=== PATIENT | female | born 1970 | race Caucasian/White ===

== ENCOUNTER 2019-04-22 04:23 | Emergency (ER) | payer SELFPAY ==
--- NOTE | 2019-04-22 04:28 | ED.GENADULT ---
HPI - General Adult General Chief complaint: Upper Respiratory Infection Stated complaint: COUGH, CHILLS, NAUSEA Time Seen by Provider: 04/22/19 04:28 Source: patient Mode of arrival: ambulatory Limitations: no limitations History of Present Illness HPI narrative: Patient is a 48-year-old female with no past medical history who presents for evaluation of myalgia, fatigue, sore throat, congestion. Patient reports she has had worsening 1 day history of this. She denies current fever, but states that she took DayQuil around 3 AM. Patient reports left ear pain, sore throat and sinus congestion. She reports nausea without vomiting or abdominal pain. No current shortness of breath or chest pain. She reports cough, states is if she feels that the phlegm gets stuck in her throat. Patient denies any wheezing. No recent sick contacts. Patient is requesting a work note. Related Data Allergies Allergy/AdvReac Type Severity Reaction Status Date / Time NKDA Allergy Mild Uncoded 08/22/09 17:29 Review of Systems Review of Systems: Narrative: CONSTITUTIONAL: Reports subjective fever and chills EYES: Denies visual changes, redness, or discharge. ENT: Reports rhinorrhea, congestion, sore throat, left ear pain CARDIOVASCULAR: Denies chest pain, palpitations, or edema. RESPIRATORY: Reports cough, denies shortness of breath GASTROINTESTINAL: Denies abdominal pain, reports nausea, no vomiting GENITOURINARY: Denies dysuria or hematuria. SKIN: Denies rash or itching. MUSCULOSKELETAL: Denies back pain, joint pain, reports myalgias NEUROLOGIC: Denies headache, numbness, or weakness. [facility] Social History Social History (Updated 04/22/19 @ 04:39 by China Madera MD) Smoking status: Never smoker Alcohol intake: never Substance use: never Occupation/Education: occupation Additional occupation/education comments: [employer] Exam Narrative: Exam Narrative: GENERAL: Well-appearing, well-nourished, and in no acute distress. HEAD: Normocephalic, atraumatic. EYES: PERRLA and EOMI. ENT: Nares clear, no rhinorrhea or epistaxis. Mucous membranes moist. Right tympanic membrane unremarkable, good light reflex, no bulging or effusion. Left TM cerumen occluding the view of the tympanic membrane. NECK: Supple. CHEST: Clear to auscultation. No respiratory distress. HEART: Regular rate and rhythm. No murmur heard. Normal peripheral pulses. ABDOMEN: Soft, nontender, nondistended, normal active bowel sounds. EXTREMITIES: Normal range of motion. No edema. SKIN: Warm, dry, no rash. NEURO: No focal deficits. Alert and oriented x3 Course Vital Signs Vital signs: Vital Signs Temperature 36.6 C 04/22/19 04:34 Pulse Rate 87 04/22/19 04:34 Respiratory Rate 18 04/22/19 04:34 Blood Pressure 126/66 04/22/19 04:34 Pulse Oximetry 98 04/22/19 04:34 Temperature 36.6 C 04/22/19 04:34 Pulse Rate 87 04/22/19 04:34 Respiratory Rate 18 04/22/19 04:34 Blood Pressure 126/66 04/22/19 04:34 Pulse Oximetry 98 04/22/19 04:34 Medical Decision Making MDM Narrative Medical decision making narrative: We are able to washout the patient's left ear to find that she had a left serous otitis media with dulled light reflex, erythema. Given patient is symptomatic with pain, we will treat this. Otherwise, patient influenza and strep swabs are negative. Patient is otherwise hemodynamically stable, no other concerning complaints. She was discharged home with antibiotic in stable condition advised follow-up with her primary care provider. Vital Signs Vital Signs: Vital Signs Temperature 36.6 C 04/22/19 04:34 Pulse Rate 87 04/22/19 04:34 Respiratory Rate 18 04/22/19 04:34 Blood Pressure 126/66 04/22/19 04:34 Pulse Oximetry 98 04/22/19 04:34 Temperature 36.6 C 04/22/19 04:34 Pulse Rate 87 04/22/19 04:34 Respiratory Rate 18 04/22/19 04:34 Blood Pressure 126/66 04/22/19 04:34 Pulse Oximetry 98 03
[2019-04-22 04:34] VITALS: BP 126/66; PULSE 87; RESP 18; TEMP 36.6; O2SAT 98
[2019-04-22] MEDS: DEXAMETHASONE SOD PHOS INJ 4 MG/ML VIAL 10 MG BY MOUTH (04:51)
[2019-04-22] MEDS: HYDROGEN PEROXIDE 3% SOLN(*SP) 473 ML BOTTLE (05:23)
== END 2019-04-22 05:25 | disposition home or self-care (01) ==
PROVIDERS: Emergency Provider Emergency Medicine
DX: B34.9 Viral infection, unspecified (principal); H65.92 Unspecified nonsuppurative otitis media, left ear
CPT/HCPCS: 87081; 87804; 87880; 99283; A9270; J1100

== ENCOUNTER 2021-08-17 08:52 | Emergency (ER) | payer SELFPAY ==
--- NOTE | ~2021-08-17 | CT_ITS ---
EXAMINATION: CT abdomen pelvis w con DATE: 08/17/2021 12:02 INDICATION: Mid abdominal lesion with 1 and erythema. TECHNIQUE: Computed tomography (CT) of the abdomen and pelvis was performed with 100 mL Omnipaque-300 intravenous contrast. Automated exposure control and iterative reconstruction technique were employe d. The dose-length product was 761.50 mGy-cm. COMPARISON: None FINDINGS: Mild dependent atelectasis in the bilateral lower lobes. Heart size is normal. No pericardial or pleu ral effusion. Post cystectomy clips the gallbladder fossa. Liver, spleen, pancreas, bilateral kidneys and right adrenal gland are normal. Subcentimeter left adrenal nodule statistically most likely repr esent an adenoma. Bowels including the appendix are normal. Bladder, anteverted uterus and bilateral adnexa are unremarkable. No free intraperitoneal gas or fluid. No pathologically enlarged abdominal o r pelvic lymphadenopathy. There is focal region of mild skin thickening with negligible underlying st randing in the subcutaneous fat overlying the anterior left lower abdomen consistent with dermatitis and minimal cellulitis. No abscess or soft tissue gas. Tiny bone islands at the right femoral head an d right pubic body. No suspicious lytic or blastic bone lesions. IMPRESSION: 1. Region of dermatitis/minimal cellulitis along the anterior left lower abdomen. No abscess or acute intra-abdominal/pelvic process. Reviewed, dictated and finalized at location A. IMPRESSION: 1. Region of dermatitis/minimal cellulitis along the anterior left lower abdome n. No abscess or acute intra-abdominal/pelvic process.
[2021-08-17 09:04] VITALS: BP 131/73; PULSE 102; RESP 14; TEMP 36.1; O2SAT 98
--- NOTE | 2021-08-17 09:32 | ED.GENADULT ---
HPI - General Adult General Chief complaint: Skin/Abscess/Foreign Body <Vicky Locke PA-C - Last Filed: 08/17/21 18:56> Stated complaint: rash <RACQUEL Villanueva Last Filed: 08/17/21 18:56> Time Seen by Provider: 08/17/21 09:19 <RACQUEL Villanueva Last Filed: 08/17/21 18:56> Source: patient <RACQUEL Villanueva Last Filed: 08/17/21 18:56> Mode of arrival: ambulatory <RACQUEL Villanueva Last Filed: 08/17/21 18:56> Limitations: no limitations <RACQUEL Villanueva Filed: 08/17/21 18:56> History of Present Illness HPI narrative: Patient is a 51 y/o female who presents to the ED with c/o lesions to her abdominal wall. Patient reports having 2 areas of redness, warmth, tenderness to her mid abdominal wall, on either side of her umbilicus. She notes her skin folds in this area and this is also where her pant waistline sits. She has had the lesions for the past couple weeks. She notes the lesions seem to alternate which is inflamed and painful. Today, she reports having increased pain, redness, tenderness to the left-sided lesion. She has not tried anything for her symptoms. She does not see a primary care doctor as she does not currently have insurance. She denies any known fever, chills, diaphoresis, nausea, vomiting, abdominal pain otherwise. <RACQUEL Villanueva Last Filed: 08/17/21 18:56> Related Data Allergies/adverse reactions: Allergies Allergy/AdvReac Type Severity Reaction Status Date / Time No Known Allergies Allergy Verified 08/17/21 09:14 <RACQUEL Villanueva Last Filed: 08/17/21 18:56> Review of Systems Review of Systems: CONSTITUTIONAL: Denies fever, chills, or sweats. CARDIOVASCULAR: Denies chest pain. RESPIRATORY: Denies dyspnea. GASTROINTESTINAL: Denies abdominal pain, nausea, vomiting, or diarrhea. SKIN: Reports mid abdominal lesions with redness, warmth, tenderness. MUSCULOSKELETAL: Denies back pain. NEUROLOGIC: Denies headache, numbness, tingling, or weakness. <Vicky Locke PA-C - Last Filed: 08/17/21 18:56> All systems reviewed & are unremarkable except as noted in HPI and below <Vicky Locke PA-C - Last Filed: 08/17/21 18:56> PMFSH Past Medical History Medical History: Medical History (Updated 08/18/21 @ 00:00 by Geovanna Puga) No pertinent past medical history <Vicky Locke PA-C - Last Filed: 08/17/21 18:56> Surgical History Surgical History: Surgical History (Updated 08/17/21 @ 09:53 by Vicky Locke PA-C) History of section <Vicky Locke PA-C - Last Filed: 08/17/21 18:56> Social History Social History: Social History (Updated 08/17/21 @ 09:53 by Vicky Locke PA-C) Smoking status: Current every day smoker Tobacco type: cigarettes Alcohol intake: never Substance use: never Additional occupation/education comments: [employer] <Vicky Locke PA-C - Last Filed: 08/17/21 18:56> Exam Narrative: GENERAL: Well appearing, well-nourished, non-toxic, in no acute distress. HEAD: Normocephalic, atraumatic. NECK: Supple. No adenopathy, no masses. RESPIRATORY: Airway patent, respirations nonlabored. Clear to auscultation bilaterally, no rales, rhonchi, wheezing. CARDIOVASCULAR: Regular rate and rhythm without murmurs, rubs, or gallops. Peripheral pulses 2+ and equal bilaterally. ABDOMINAL: Soft, no other tenderness to palpation in abdomen aside from localized lesions, nondistended, no hepatosplenomegaly. Normoactive BS. MUSCULOSKELETAL: Moves all extremities. Strength/ROM intact without gross deformities. SKIN: Warm, dry. Two areas of chronic-appearing skin inflammation/irritation/induration/redness in skin fold of mid abdomen to left/right of umbilicus. R lesion nontender. L lesion approximately 7X3 cm area of redness, induration, tenderness. Warmth noted to lesion on L mid abdomen. No drainage noted at this time. No fluctuance appreciated from either lesion.
[2021-08-17 10:05] LABS: Basophils Absolute Auto 0.1 K/mm3 (0.0-0.1); Eosinophils Absolute Auto 0.3 K/mm3 (0-0.3); Eosinophils Percent Auto 2.6 % (0-4.4); Hematocrit 42.6 % (37.0-47.0); Hemoglobin 14.2 g/dL (12.0-15.0); Immature Granulocyte Absolute 0.06 K/mm3 (0.00-0.031); Immature Granulocyte Percent A 0.5 % (0-0.5); Lymphocytes Absolute Auto 4.28 K/mm3 (0.9-3.2); Lymphocytes Percent Auto 35.3 % (18.3-44.2); Mean Corpuscular HGB Conc 33.3 g/dl (32-36); Mean Corpuscular Hemoglobin 28.9 pg (26-34); Mean Corpuscular Volume 86.8 fl (80-100); Mean Platelet Volume 9.8 fl (7.4-10.4); Monocytes Percent Auto 7.8 % (2.6-8.5); Neutrophils Absolute Auto 6.4 K/mm3 (1.3-6.7); Neutrophils Percent Auto 52.8 % (45.5-73.1); Platelet Count Result 327 k/mm3 (150-375); Red Blood Count 4.91 M/mm3 (4.2-5.4); Red Cell Distribution Width 13.3 % (11.5-14.5); White Blood Count 12.1 K/mm3 (4.5-10.0)
[2021-08-17 10:17] LABS: Alanine Aminotransferase 32 U/L (6-35); Albumin Level 4.4 g/dL (3.5-5.1); Alkaline Phosphatase 96 U/L (38-126); Anion Gap 3 mmol/L (8-16); Aspartate Amino Transferase 31 U/L (14-36); Bilirubin,Total 0.1 mg/dL (0.2-1.3); Blood Urea Nitrogen 9 mg/dL (7-17); Calcium 9.2 mg/dL (8.4-10.2); Carbon Dioxide 29 mmol/L (22-30); Chloride 106 mmol/L (98-107); Estimated CRCL calculation 96 ml/min; Estimated Glomerular Filt Rate > 60; Glucose 91 mg/dL (65-110); Potassium 3.7 mmol/L (3.4-5.0); Sodium 138 mmol/L (137-145)
[2021-08-17 11:22] VITALS: BP 131/56; PULSE 82; RESP 18; O2SAT 98
[2021-08-17 13:29] VITALS: BP 127/58; PULSE 90; RESP 18; O2SAT 97
== END 2021-08-17 13:30 | disposition home or self-care (01) ==
PROVIDERS: Physician Assistant; Emergency Provider Emergency Medicine
DX: L03.311 Cellulitis of abdominal wall (principal); L30.9 Dermatitis, unspecified; F17.210 Nicotine dependence, cigarettes, uncomplicated
CPT/HCPCS: 36415; 74177; 80053; 81025; 85025; 99284; Q9967

== ENCOUNTER 2021-10-12 10:26 | Emergency (ER) | payer SELFPAY ==
[2021-10-12 10:27] VITALS: PULSE 91; RESP 14; TEMP 36.4; O2SAT 100
--- NOTE | 2021-10-12 10:36 | ED.GENADULT ---
HPI - General Adult General Chief complaint: Dental/Oral Stated complaint: toothache lower right side Time Seen by Provider: 10/12/21 10:31 Source: RN notes reviewed History of Present Illness HPI narrative: Patient presents emergency department from home for right-sided dental pain. Patient states the dental pain began in the middle of the night last night. She states that her right lower molar is cracked and carious but she has not seen a dentist she states that she has taken both ibuprofen and Tylenol for the pain at home with no relief she denies any fevers or chills sore throat or any other symptoms Related Data Allergies Allergy/AdvReac Type Severity Reaction Status Date / Time No Known Allergies Allergy Verified 08/17/21 09:14 Review of Systems Review of Systems: Gen.: Denies fevers or chills HEENT: See HPI Neuro: Denies headache Skin: Denies rash Endo: Denies DM PMFSH Past Medical History Medical History No pertinent past medical history Surgical History Surgical History (Updated 08/17/21 @ 09:53 by Vicky Jo PA-C) History of section Social History Social History Smoking status: Current every day smoker Tobacco type: cigarettes Alcohol intake: never Substance use: never Additional occupation/education comments: [employer] Exam Narrative: APPEARANCE: No acute distress, nontoxic, resting in bed HEENT: Normocephalic, atraumatic, TMs clear bilaterally, nares patent, oral mucosa moist, airway patent, approximately tooth 29 is chipped and carious with several other missing teeth there is tenderness to palpation of this tooth mild erythema no fluctuance of the gums RESPIRATORY: No respiratory distress MUSCULOSKELETAl: Moves all extremities. NEURO: Awake and alert. Following commands, speech normal, no focal deficits SKIN:: Warm, dry. Normal Color PSYCHIATRIC: Normal affect/mood Course Course Emergency Course: Discussed with patient results of workup and diagnosis. Discussed need for follow-up with primary care, proper use of medication, and reasons to return to the emergency department. Patient understands and agrees to current treatment plan Vital Signs Vital signs: Vital Signs Temperature 97.5 F L 10/12/21 10:27 Pulse Rate 91 10/12/21 10:27 Respiratory Rate 14 10/12/21 10:27 Pulse Oximetry 100 10/12/21 10:27 Oxygen Delivery Room Air 10/12/21 10:27 Temperature 97.5 F L 10/12/21 10:27 Pulse Rate 91 10/12/21 10:27 Respiratory Rate 14 10/12/21 10:27 Pulse Oximetry 100 10/12/21 10:27 Oxygen Delivery Room Air 10/12/21 10:27 Medical Decision Making Vital Signs Vital Signs: Vital Signs Temperature 97.5 F L 10/12/21 10:27 Pulse Rate 91 10/12/21 10:27 Respiratory Rate 14 10/12/21 10:27 Pulse Oximetry 100 10/12/21 10:27 Oxygen Delivery Room Air 10/12/21 10:27 Temperature 97.5 F L 10/12/21 10:27 Pulse Rate 91 10/12/21 10:27 Respiratory Rate 14 10/12/21 10:27 Pulse Oximetry 100 10/12/21 10:27 Oxygen Delivery Room Air 10/12/21 10:27 Discharge Plan Discharge Clinical Impression: Toothache, Dental caries Patient Disposition: Home, Self-Care Condition: Stable Instructions: Antibiotic Form, Toothache (ED) Additional Instructions: Return for increasing pain fever or any other symptoms of concern Prescriptions: New ibuprofen 600 mg tablet 600 mg PO TID PRN (Reason: pain) Qty: 14 0RF penicillin V potassium 500 mg tablet 500 mg PO TID Qty: 30 0RF No Action amoxicillin 875 mg tablet 875 mg PO Q12H Qty: 20 0RF acetaminophen 500 mg capsule 500 mg PO Q6H PRN (Reason: fever or pain) Qty: 30 0RF cephalexin 500 mg capsule 500 mg PO Q6H 7 Days Qty: 28 0RF Follow-up/Referrals: [facility] [place] [Outside] - 2 Days [facility] [place]
[2021-10-12] MEDS: traMADol HCL (*CRX) 50 MG TABLET PO (10:49)
[2021-10-12] MEDS: PENICILLIN V POTASSIUM 250 MG TABLET 500 MG PO (10:50)
== END 2021-10-12 11:15 | disposition home or self-care (01) ==
LOC: ANHED 10:50
PROVIDERS: Emergency Provider Emergency Medicine
DX: K02.9 Dental caries, unspecified (principal); K08.89 Other specified disorders of teeth and supporting structures
CPT/HCPCS: 99283; A9270

== ENCOUNTER 2022-03-04 07:10 | Emergency (ER) | payer SELFPAY ==
[2022-03-04 07:12] VITALS: BP 131/58; PULSE 87; RESP 18; TEMP 36.5; O2SAT 97
--- NOTE | 2022-03-04 09:26 | ED.DENTAL ---
HPI - Dental/Oral General Chief complaint: Dental/Oral Stated complaint: tooth ache Time Seen by Provider: 03/04/22 08:55 Source: patient Mode of arrival: ambulatory Limitations: no limitations History of Present Illness HPI Narrative: Patient is a 51-year-old female who presents the ED with report of right lower dental pain. Patient reports having a cracked tooth, tooth #27. She has had previous issues with the tooth. Over the last 2 days, she has had worsening pain in this tooth. She is concerned she may have an infection. She has been taking Tylenol and ibuprofen at home with minimal relief of pain. She states she does not have medical insurance until August and has not seen a dentist yet. She denies any difficulty breathing, difficulty swallowing, fevers, nausea, vomiting, throat swelling, drooling. Teeth map: 1. cracked tooth 2. previous dental extraction Related Data Allergies Allergy/AdvReac Type Severity Reaction Status Date / Time No Known Allergies Allergy Verified 08/17/21 09:14 Review of Systems Review of Systems: CONSTITUTIONAL: Denies fever, chills, or sweats. ENT: See HPI. CARDIOVASCULAR: Denies chest pain. RESPIRATORY: Denies cough or dyspnea. GASTROINTESTINAL: Denies abdominal pain, nausea, vomiting. All systems reviewed & are unremarkable except as noted in HPI and below PMFSH Past Medical History Medical History No pertinent past medical history Surgical History Surgical History History of section Social History Social History Smoking status: Current every day smoker Tobacco type: cigarettes Alcohol intake: never Substance use: never Occupation/Education: occupation Additional occupation/education comments: [employer] Exam Narrative: GENERAL: Well appearing, obese, non-toxic, in no acute distress. HEAD: Normocephalic, atraumatic. EYES: PERRLA/EOMI, conjunctiva clear. ENT: Mucous membranes moist. Diffuse dental decay, scattered dental caries. No trismus or malocclusion. Tenderness to inner and outer gumline surrounding right lower tooth #27, tooth appears fractured. Gumline mildly erythematous, no focal abscess, swelling, or fluctuance appreciated. Maintaining secretions. NECK: Supple. No significant swelling, no adenopathy, no masses. RESPIRATORY: Airway patent, respirations nonlabored. Clear to auscultation bilaterally, no rales, rhonchi, wheezing. CARDIOVASCULAR: Regular rate and rhythm without murmurs, rubs, or gallops. Radial pulses 2+ and equal bilaterally. MUSCULOSKELETAL: Moves all extremities. Strength/ROM intact without gross deformities. SKIN: Warm, dry, normal color. No rashes. NEURO: A&O X3. Speech clear. Cranial nerves II-XII grossly intact. Steady gait. No ataxic movements. PSYCHIATRIC: Appropriate mood and affect. Normal interaction. Course Vital Signs Vital signs: Vital Signs Temperature 97.7 F 03/04/22 07:12 Pulse Rate 87 03/04/22 07:12 Respiratory Rate 18 03/04/22 07:12 Blood Pressure 131/58 L 03/04/22 07:12 Pulse Oximetry 97 03/04/22 07:12 Oxygen Delivery Room Air 03/04/22 07:12 Temperature 97.7 F 03/04/22 07:12 Pulse Rate 87 03/04/22 07:12 Respiratory Rate 18 03/04/22 07:12 Blood Pressure 131/58 L 03/04/22 07:12 Pulse Oximetry 97 03/04/22 07:12 Oxygen Delivery Room Air 03/04/22 07:12 MDM - Dental/Oral MDM Narrative Medical decision making narrative: Patient's pain is consistent with dental caries and dental fracture. There are no focal signs of space-occupying abscess. The patient is controlling secretions well without signs of airway compromise. Patient is felt reasonable for outpatient follow-up with dental evaluation. Augmentin and a few [place] sent to pharmacy. Patient given list of dentists and reasons to ret
[2022-03-04] MEDS: IBUPROFEN 600 MG TABLET PO (09:36)
[2022-03-04] MEDS: AMOXICILLIN/CLAVULANATE K 875-125 MG TAB 1 TABLET PO (09:36)
== END 2022-03-04 09:47 | disposition home or self-care (01) ==
PROVIDERS: Emergency Provider Physician Assistant
DX: S02.5XXA Fracture of tooth (traumatic), initial encounter for closed fracture (principal); K08.89 Other specified disorders of teeth and supporting structures; X58.XXXA Exposure to other specified factors, initial encounter
CPT/HCPCS: 99283; A9270

== ENCOUNTER 2022-04-26 03:42 | Emergency (ER) | payer SELFPAY ==
[2022-04-26 03:43] VITALS: BP 137/68; PULSE 90; RESP 16; TEMP 36.4; O2SAT 98
--- NOTE | 2022-04-26 05:07 | ED.GENADULT ---
HPI - General Adult General Chief complaint: Dental/Oral Stated complaint: right lower toothache Time Seen by Provider: 04/26/22 04:30 History of Present Illness HPI narrative: This is a 51-year-old female presenting ED with chief complaint of dental pain. Patient has a fractured tooth in the bottom right. It has been broken for years but has been having increased pain. She has not noticed any swelling in her mouth. No systemic signs of illness. Patient has appointment with the dentist next month. Patient has been alternating Tylenol Motrin which she says controls her pain Goals visit is to obtain pain control and antibiotics. Related Data Allergies Allergy/AdvReac Type Severity Reaction Status Date / Time No Known Allergies Allergy Verified 04/26/22 03:54 [facility] Past Medical History Medical History No pertinent past medical history Surgical History Surgical History History of section Social History Social History Smoking status: Current every day smoker Tobacco type: cigarettes Alcohol intake: never Substance use: never Occupation/Education: occupation Additional occupation/education comments: [employer] Exam Narrative: APPEARANCE: No apparent distress. Head: poor dentition, fractured right lower canine. No evidence of abscess. No swelling in the mouth. EYES: EOMI, NOSE: Atraumatic NECK: Trachea midline RESPIRATORY: No increased rate of breathing CARDIOVASCULAR: RRR, ABDOMINAL: Non-distended MUSCULOSKELETAl: No obvious deformities NEURO: Alert. Moving 4/4 extremities SKIN:: Warm, dry. Normal color PSYCHIATRIC: Normal affect Course Vital Signs Vital signs: Vital Signs Temperature 97.6 F 04/26/22 03:43 Pulse Rate 90 04/26/22 03:43 Respiratory Rate 16 04/26/22 03:43 Blood Pressure 137/68 04/26/22 03:43 Pulse Oximetry 98 04/26/22 03:43 Oxygen Delivery Room Air 04/26/22 03:43 Temperature 97.6 F 04/26/22 03:43 Pulse Rate 90 04/26/22 03:43 Respiratory Rate 16 04/26/22 03:43 Blood Pressure 137/68 04/26/22 03:43 Pulse Oximetry 98 04/26/22 03:43 Oxygen Delivery Room Air 04/26/22 03:43 Medical Decision Making MDM Narrative Medical decision making narrative: -Presentation: 51-year-old presenting with dental pain -DDX includes but is not limited to: dental abscess, dental caries, -Co-morbidities complicating care: poor dentition -Social determinants of health: patient works at [employer] with her -External Chart Review: none -Hx from independent Sources: none -Discussion of Management/Consultants: none -Independent interpretation of studies: none Dx tests considered but not ordered: none -Procedures: none -Interventions: [place] 5mg, Augmentin 875 -Shared decision making / Disposition: no evidence of abscess requiring drainage. Patient was offered a inferior alveolar dental block but declined. She was given a [place] and Augmentin. She continues take Motrin Tylenol for pain follow up with a dentist. -RX Augmentin b.i.d. times 10 days. Vital Signs Vital Signs: Vital Signs Temperature 97.6 F 04/26/22 03:43 Pulse Rate 90 04/26/22 03:43 Respiratory Rate 16 04/26/22 03:43 Blood Pressure 137/68 04/26/22 03:43 Pulse Oximetry 98 04/26/22 03:43 Oxygen Delivery Room Air 04/26/22 03:43 Temperature 97.6 F 04/26/22 03:43 Pulse Rate 90 04/26/22 03:43 Respiratory Rate 16 04/26/22 03:43 Blood Pressure 137/68 04/26/22 03:43 Pulse Oximetry 98 04/26/22 03:43 Oxygen Delivery Room Air 04/26/22 03:43 Discharge Plan Discharge Clinical Impression: Dental caries Patient Disposition: Home, Self-Care Condition: Stable Instructions: Antibiotic Form, Toothache
[2022-04-26] MEDS: AMOXICILLIN/CLAVULANATE K 875-125 MG TAB 1 TABLET PO (05:17)
[2022-04-26] MEDS: HYDROcodone/acetaminophen (*CRX) 5-325 MG TABLET 1 TAB PO (05:17)
== END 2022-04-26 05:20 | disposition home or self-care (01) ==
PROVIDERS: Emergency Provider Emergency Medicine
DX: K02.9 Dental caries, unspecified (principal)
CPT/HCPCS: 99283; A9270

== ENCOUNTER 2022-05-02 10:09 | Emergency (ER) | payer SELFPAY ==
[2022-05-02 10:38] VITALS: BP 132/70; PULSE 94; RESP 20; TEMP 36.6; O2SAT 97
--- NOTE | 2022-05-02 12:25 | ED.EYEPROB ---
HPI - Eye Problem General Chief complaint: Eye Problems Stated complaint: right eye redness and drainage Time Seen by Provider: 05/02/22 12:00 History of Present Illness HPI Narrative: Patient is a 51-year-old female who wears corrective lenses here for evaluation of right eye irritation over the past 2 days. Patient reports itchiness, redness and increased watery drainage from the eye. She denies trauma to the eye, known foreign bodies or obvious precipitants for her symptoms. Positive sick contacts, numerous people at her work have similar symptoms. Reports some blurry vision in the right eye but no double vision, nausea, vomiting. Was here 2 weeks ago for tooth ache and received antibiotics, tooth ache has improved. Related Data Allergies Allergy/AdvReac Type Severity Reaction Status Date / Time No Known Allergies Allergy Verified 05/02/22 10:09 Review of Systems Review of Systems: Gen.: Denies fevers or chills Eyes: Reports eye pain and discharge ENT: Denies congestion Respiratory: Denies shortness of breath or cough CV: Denies chest pain or palpitations GI: Denies abdominal pain nausea, emesis or diarrhea denies burning, urgency, frequency or hematuria Musculoskeletal: Denies back pain or muscle pain Neuro: Denies numbness, tingling, weakness or focal weakness Skin: Denies rash Except as documented, all other systems reviewed and negative PMFSH Past Medical History Medical History No pertinent past medical history Surgical History Surgical History History of section Social History Social History Smoking status: Current every day smoker Tobacco type: cigarettes Alcohol intake: never Substance use: never Occupation/Education: occupation Additional occupation/education comments: [employer] Exam Narrative: APPEARANCE: Well appearing, no pain in distress, well-nourished. Head: Normocephalic and atraumatic. EYES: Right eye is diffusely injected, pupils equal round and reactive to light, normal EOMs, fluorescein exam reveals a small area of uptake overlying her pupil. Tl sign is negative. NOSE: No nasal drainage EARS: External ear normal in appearance THROAT: Oropharynx is clear. Mucous membranes are moist. NECK: Supple. No adenopathy, no masses. RESPIRATORY: Airway patent, respirations nonlabored. Clear to auscultation bilaterally, no rales, rhonchi, wheezing. CARDIOVASCULAR: Regular rate and rhythm without murmurs, rubs, or gallops. ABDOMINAL: Normoactive bowel sounds. Soft, nontender, nondistended. No rebound tenderness or guarding. MUSCULOSKELETAL: Extremities are warm and well-perfused. Moves all extremities well. No edema. NEURO: Normal speech. No focal neurologic deficits. SKIN: Skin is warm and dry. No rashes. PSYCHIATRIC: Normal affect/mood.. Course Vital Signs Vital signs: Vital Signs Temperature 97.8 F 05/02/22 10:38 Pulse Rate 94 05/02/22 10:38 Respiratory Rate 20 05/02/22 10:38 Blood Pressure 132/70 05/02/22 10:38 Pulse Oximetry 97 05/02/22 10:38 Oxygen Delivery Room Air 05/02/22 10:38 Temperature 97.8 F 05/02/22 10:38 Pulse Rate 94 05/02/22 10:38 Respiratory Rate 20 05/02/22 10:38 Blood Pressure 132/70 05/02/22 10:38 Pulse Oximetry 97 05/02/22 10:38 Oxygen Delivery Room Air 05/02/22 10:38 MDM - Eye Problem MDM Narrative Medical decision making narrative: 51-year-old female here for evaluation of right eye irritation and redness x2 days in the setting of a corneal abrasion visualized on the fluorescein exam. She has normal Hira-Pen pressures. Visual acuity is 20/25 in the left and 20/200 in the right. Patient states that opening her eye is painful which makes it difficult to read the numbers. She will be treated with erythromyci
== END 2022-05-02 13:04 | disposition home or self-care (01) ==
PROVIDERS: Emergency Provider Physician Assistant
DX: S05.01XA Injury of conjunctiva and corneal abrasion without foreign body, right eye, initial encounter (principal); X58.XXXA Exposure to other specified factors, initial encounter
CPT/HCPCS: 99283

== ENCOUNTER 2022-11-18 01:24 | Emergency (ER) | payer OTHER, SELFPAY ==
--- NOTE | ~2022-11-18 | CT_ITS ---
EXAMINATION: CT lumbar spine wo con DATE: 11/18/2022 02:20 INDICATION: Midline back pain. TECHNIQUE: Computed tomography (CT) of the lumbar spine was performed without intravenous contrast. A utomated exposure control and iterative reconstruction technique were employed. The dose-length produ ct was 1063.63 mGy-cm. COMPARISON: Lumbar spine MRI 07/08/16 FINDINGS: There are changes of cholecystectomy. Aortic atherosclerosis is noted. Bone alignment is no rmal. Vertebral body heights and intervertebral disc heights are normal. The following disc levels ar e specifically discussed: L1-L2: The disc does not extend beyond the endplate margin. There is moderate right and severe left f acet joint osteoarthritis. There is no neural foraminal stenosis. There is no central canal stenosis. L2-L3: The disc does not extend beyond the endplate margin. There is severe bilateral facet joint ost eoarthritis. There is no neural foraminal stenosis. There is no central canal stenosis. L3-L4: The disc does not extend beyond the endplate margin. There is moderate bilateral facet joint o steoarthritis. There is no neural foraminal stenosis. There is no central canal stenosis. L4-L5: The disc is bulging. There is mild bilateral facet joint osteoarthritis. There is mild bilater al neural foraminal stenosis. There is mild central canal stenosis. L5-S1: The disc is bulging. There is mild bilateral facet joint osteoarthritis. There is mild left ne ural foraminal stenosis. There is mild central canal stenosis. IMPRESSION: 1. Mild lumbar spondylosis, stable from 07/08/2016. Reviewed, dictated and finalized at location A.
[2022-11-18 01:30] VITALS: BP 121/65; PULSE 103; RESP 20; TEMP 36.9; O2SAT 95
--- NOTE | 2022-11-18 01:53 | ED.DENTAL ---
HPI - Dental/Oral General Chief complaint: Dental/Oral <Nita Flores PA-C - Last Filed: 11/18/22 03:45> Stated complaint: Dental pain <Nita Flores PA-C - Last Filed: 11/18/22 03:45> Time Seen by Provider: 11/18/22 01:37 <Nita Flores PA-C - Last Filed: 11/18/22 03:45> History of Present Illness HPI Narrative: 52-year-old female reports for evaluation for right-sided facial and jaw swelling since last night. Patient states she fractured her tooth on the right lower jaw a few years ago and has not had any problems generalized pain. She does not have a dentist but reports she recently got insurance. She denies pain, fever, nausea or vomiting, difficulty breathing, cough or congestion, chest pain or shortness of breath. She is also reporting generalized low back pain x4 days. Patient states the back pain started when she was walking 4 days ago. She denies known injury or trauma. Reports the back pain is worse with movement. Denies hematuria, dysuria, urinary frequency or urgency, radiating pain down her legs, lower extremity weakness or numbness, saddle anesthesia, difficulty walking, fever, IV drug use, use of steroids or immunosuppressants, unintentional weight loss, history of cancer., abdominal pain, loss of bowel or bladder control or retention. <Nita Flores PA-C - Last Filed: 11/18/22 03:45> Related Data Allergies/adverse reactions: Allergies Allergy/AdvReac Type Severity Reaction Status Date / Time No Known Allergies Allergy Verified 11/18/22 01:36 <Nita Flores PA-C - Last Filed: 11/18/22 03:45> Review of Systems Review of Systems: CONSTITUTIONAL: Denies fever, chills EYES: Denies visual changes, redness, or discharge. ENT: See HPI CARDIOVASCULAR: Denies chest pain, palpitations, or edema. RESPIRATORY: Denies cough or dyspnea. GASTROINTESTINAL: Denies abdominal pain, nausea, vomiting, or diarrhea. GENITOURINARY: Denies dysuria or hematuria. SKIN: Denies rash or itching. MUSCULOSKELETAL: See HPI NEUROLOGIC: Denies headache, numbness, dizziness, or weakness. PSYCHIATRIC: Denies anxiety or depression. <Nita Flores PA-C - Last Filed: 11/18/22 03:45> [facility] Past Medical History Medical History: Medical History No pertinent past medical history <Nita Flores PA-C - Last Filed: 11/18/22 03:45> Surgical History Surgical History: Surgical History History of section <Nita Flores PA-C - Last Filed: 11/18/22 03:45> Social History Social History: Social History Smoking status: Current every day smoker Tobacco type: cigarettes Alcohol intake: never Substance use: never Occupation/Education: occupation Additional occupation/education comments: [employer] <Nita Flores PA-C - Last Filed: 11/18/22 03:45> Exam Narrative: GENERAL: Well-appearing, in no acute distress. Patient resting comfortably in exam bed. She is pleasant and conversational. HEAD: Normocephalic EYES: PERRLA ENT: Nares clear. Mucous membranes moist. Poor dentition. Caries throughout. Fractured first molar in the right lower jaw with small draining periapical abscess and tenderness. Right mandibular edema without areas of fluctuation or induration. Floor of mouth is soft without crepitus. No trismus. Patient tolerating secretions. No airway compromise. NECK: Supple. CHEST: No respiratory distress. Clear to auscultation, no adventitious breath sounds. HEART: Regular rate and rhythm. No murmur heard. Normal peripheral pulses. ABDOMEN: Soft, nontender, normal active bowel sounds. BACK: No midline thoracolumbar spinous tenderness, step-offs or deformities. Midline lumbar tenderness without step-offs or deformities. No overlying warmth or erythema, no ra
[2022-11-18] MEDS: IBUPROFEN 400 MG TABLET 800 MG PO (02:02)
[2022-11-18] MEDS: CYCLOBENZAPRINE HCL 10 MG TABLET PO (02:03)
[2022-11-18] MEDS: LIDOCAINE 5% PATCH 1 PATCH TRANSDERM (03:05)
[2022-11-18 03:08] VITALS: BP 102/57; PULSE 75; O2SAT 98
[2022-11-18] MEDS: AMOXICILLIN/CLAVULANATE K 875-125 MG TAB 1 TABLET PO (04:05)
[2022-11-18 04:08] VITALS: BP 105/58; PULSE 90; RESP 18; O2SAT 100
== END 2022-11-18 06:20 | disposition home or self-care (01) ==
PROVIDERS: Emergency Provider Emergency Medicine
DX: K04.7 Periapical abscess without sinus (principal); S02.5XXA Fracture of tooth (traumatic), initial encounter for closed fracture; M54.50 Low back pain, unspecified; F17.210 Nicotine dependence, cigarettes, uncomplicated; X58.XXXA Exposure to other specified factors, initial encounter
CPT/HCPCS: 72131; 99283; A9270

== ENCOUNTER 2023-02-10 07:13 | Outpatient (CLI) | payer OTHER, SELFPAY ==
--- NOTE | ~2023-02-10 | XR_ITS ---
Clinical Indication: Smoking history PA and lateral views of the chest: Comparison: None Findings: The lungs are clear, without evidence of focal consolidation or pleural effusion. Cardiome diastinal silhouette is within normal limits. Bones and soft tissues are unremarkable. Impression: Normal chest. Reviewed, dictated and finalized at location . ROAD INSPECTOR Impression: Normal chest.
== END 2023-02-10 07:14 | disposition home or self-care (01) ==
LOC: ANHIMG 07:18
PROVIDERS: PCP Emergency Medicine; Visit Provider Emergency Medicine
DX: Z12.31 Encounter for screening mammogram for malignant neoplasm of breast (principal)
CPT/HCPCS: 71046

== ENCOUNTER 2023-06-19 10:40 | Emergency (ER) | payer OTHER, SELFPAY ==
--- NOTE | ~2023-06-19 | XR_ITS ---
Clinical Indication: Chest pain PA and lateral views of the chest: Comparison: 02/10/2023 Findings: The lungs are clear, without evidence of focal consolidation or pleural effusion. Cardiome diastinal silhouette is within normal limits. Bones and soft tissues are unremarkable. Impression: Normal chest. Reviewed, dictated and finalized at location . Impression: Normal chest.
--- NOTE | 2023-06-19 10:41 | ECG_ITS ---
SEE SCANNED COPY FOR CONFIRMED REPORT MTDD
[2023-06-19 10:55] VITALS: BP 140/83; PULSE 100; RESP 16; TEMP 36.4; O2SAT 97
[2023-06-19 10:59] VITALS: O2SAT 99
[2023-06-19 11:00] VITALS: PULSE 95
[2023-06-19] MEDS: ASPIRIN 81 MG CHEWABLE TABLET 324 MG PO (11:02)
[2023-06-19 11:04] LABS: Basophils Absolute Auto 0.1 K/mm3 (0.0-0.1); Basophils Percent Auto 0.9 % (0.2-1.2); Eosinophils Absolute Auto 0.4 K/mm3 (0-0.3); Eosinophils Percent Auto 3.3 % (0-4.4); Hematocrit 41.8 % (37.0-47.0); Immature Granulocyte Absolute 0.06 K/mm3 (0.00-0.031); Immature Granulocyte Percent A 0.5 % (0-0.5); Lymphocytes Absolute Auto 3.21 K/mm3 (0.9-3.2); Lymphocytes Percent Auto 28.6 % (18.3-44.2); Mean Corpuscular HGB Conc 33.5 g/dl (32-36); Mean Corpuscular Hemoglobin 29.2 pg (26-34); Mean Corpuscular Volume 87.1 fl (80-100); Monocytes Absolute Auto 0.6 K/mm3 (0.1-0.6); Monocytes Percent Auto 5.2 % (2.6-8.5); Neutrophils Absolute Auto 6.9 K/mm3 (1.3-6.7); Neutrophils Percent Auto 61.5 % (45.5-73.1); Platelet Count Result 314 k/mm3 (150-375); Red Cell Distribution Width 13.1 % (11.5-14.5); White Blood Count 11.2 K/mm3 (4.5-10.0)
--- NOTE | 2023-06-19 11:10 | ED.CHESTPAIN ---
HPI - Chest Pain General Chief Complaint: Chest Pain Stated Complaint: Chest pain Time Seen by Provider: 06/19/23 10:47 Source: patient Mode of arrival: ambulatory Limitations: no limitations History of Present Illness HPI narrative: Patient is a 53 y/o female who presents to the ED with c/o CP. Patient reports he was at work this morning around 7:00 a.m. when she developed intermittent sharp shooting pains throughout her midsternal chest, extending into her left-sided chest and up to her left shoulder. States pain was very brief, lasted a second or two, worse with inspiration. Denies aggravation with exertion. Denies any current pain. She did feel mildly short of breath and lightheaded associated with chest pain. Denies any recent cough or cold symptoms. Denies fevers. Denies lower extremity pain or swelling. No history of blood clots. No recent long-distance travel. She is a smoker. Denies history of hypertension, hyperlipidemia, diabetes. Reports family history of heart disease in her mother, unknown age. Related Data Allergies Allergy/AdvReac Type Severity Reaction Status Date / Time No Known Allergies Allergy Verified 06/19/23 10:55 Review of Systems Review of Systems: CONSTITUTIONAL: Denies fever, chills, or sweats. CARDIOVASCULAR: See HPI. RESPIRATORY: See HPI. GASTROINTESTINAL: Denies abdominal pain, nausea, vomiting. MUSCULOSKELETAL: See HPI. NEUROLOGIC: Denies headache, dizziness, numbness, or weakness. All systems reviewed & are unremarkable except as noted in HPI and below PMFSH Past Medical History Medical History No pertinent past medical history Surgical History Surgical History History of section Social History Social History Smoking status: Current every day smoker Tobacco type: cigarettes Alcohol intake: never Substance use: never Occupation/Education: occupation Additional occupation/education comments: [employer] Exam Narrative: GENERAL: Well appearing, obese with BMI of 36.2, non-toxic, in no acute distress. HEAD: Normocephalic, atraumatic. RESPIRATORY: Airway patent, respirations nonlabored. Clear to auscultation bilaterally, no rales, rhonchi, wheezing. No focal lung sounds. No splinting. CARDIOVASCULAR: Regular rate and rhythm without murmurs, rubs, or gallops. Peripheral pulses intact. ABDOMINAL: Soft, no tenderness throughout abdomen or epigastric region, nondistended. Normoactive BS. MUSCULOSKELETAL: Moves all extremities. No gross deformities. Mild chest wall tenderness throughout left upper anterior chest. No midsternal chest wall tenderness. No calf tenderness or lower extremity edema. SKIN: Warm, dry, normal color. NEURO: A&O X3. Speech clear. PSYCHIATRIC: Appropriate mood and affect. Normal interaction. Course Vital Signs Vital signs: Vital Signs Temperature 97.5 F L 06/19/23 10:55 Pulse Rate 100 06/19/23 10:55 Respiratory Rate 16 06/19/23 10:55 Blood Pressure 140/83 06/19/23 10:55 Pulse Oximetry 97 06/19/23 10:55 Oxygen Delivery Room Air 06/19/23 10:55 Temperature 97.7 F 06/19/23 14:59 Pulse Rate 82 06/19/23 14:59 Respiratory Rate 17 06/19/23 14:59 Blood Pressure 133/70 06/19/23 14:59 Pulse Oximetry 97 06/19/23 14:59 Oxygen Delivery Room Air 06/19/23 10:59 MDM - Chest Pain MDM Narrative Medical decision making narrative: HEART score =3 based on age, RFs (BMI, smoking, +FHx). EKG with incomplete right bundle-branch block, no acute ST changes. Baseline troponin is negative. BNP within normal limits. D-dimer within normal limits. No evidence of DVT on exam. Patient otherwise low risk Wells score, no risk factors for VTE. Chest x-ray is clear. Remainder of basic laboratory studies are unremark
[2023-06-19 11:14] LABS: Alanine Aminotransferase 27 U/L (6-35); Albumin Level 4.7 g/dL (3.5-5.1); Alkaline Phosphatase 100 U/L (38-126); Anion Gap 11 mmol/L (4-12); Aspartate Amino Transferase 30 U/L (14-36); Bilirubin,Total 0.5 mg/dL (0.2-1.3); Blood Urea Nitrogen 11 mg/dL (7-17); Calcium 10.1 mg/dL (8.4-10.2); Carbon Dioxide 25 mmol/L (22-30); Chloride 105 mmol/L (98-107); Estimated CRCL calculation 98 ml/min; Estimated Glomerular Filt Rate > 60; Glucose 98 mg/dL (65-110); Lipase 775 U/L (23-300); Potassium 3.8 mmol/L (3.4-5.0); Sodium 141 mmol/L (137-145)
[2023-06-19 11:15] LABS: INR 0.9; Prothrombin Time 12.9 Seconds (11.1-14.7)
[2023-06-19 11:17] LABS: Partial Thromboplastin Time 32.5 Seconds (22.3-36.8)
[2023-06-19 11:26] LABS: Troponin I < 0.012 ng/mL (0.000-0.034)
[2023-06-19 12:04] LABS: D Dimer < 0.27 ug/mL (<0.48)
[2023-06-19 12:08] LABS: NT Pro B Type Natriuretic Pept 35 pg/mL (19.9-100)
--- NOTE | 2023-06-19 12:37 | ECG_ITS ---
SEE SCANNED COPY FOR CONFIRMED REPORT MTDD
--- NOTE | 2023-06-19 13:38 | ECG_ITS ---
SEE SCANNED COPY FOR CONFIRMED REPORT MTDD
[2023-06-19 13:47] VITALS: BP 112/62; PULSE 81; RESP 16; O2SAT 99
[2023-06-19 14:38] LABS: Troponin I < 0.012 ng/mL (0.000-0.034)
[2023-06-19 14:59] VITALS: BP 133/70; PULSE 82; RESP 17; TEMP 36.5; O2SAT 97
== END 2023-06-19 15:01 | disposition home or self-care (01) ==
PROVIDERS: Preventive Medicine Aerospace Medicine; Emergency Provider Physician Assistant
DX: R07.89 Other chest pain (principal); R74.8 Abnormal levels of other serum enzymes; F17.210 Nicotine dependence, cigarettes, uncomplicated; R94.31 Abnormal electrocardiogram [ECG] [EKG]; I45.10 Unspecified right bundle-branch block
CPT/HCPCS: 36415; 71046; 80053; 83690; 83880; 84484; 85025; 85380; 85610; 85730; 93005; 99284; A9270

== ENCOUNTER 2024-05-05 08:44 | Observation (INO) | payer OTHER, SELFPAY ==
[2024-05-05] VITALS (10 sets, daily range): BP systolic 113–154; BP diastolic 47–114; PULSE 87–108; RESP 16–20; TEMP 36.2–36.7; O2SAT 95–97; BMI 37.4
--- NOTE | ~2024-05-05 | CT_ITS ---
EXAMINATION: CTA BRAIN/CAROTID DATE: 05/05/2024 10:13 INDICATION: Stroke with left arm and facial tingling TECHNIQUE: Computed tomographic angiography (CTA) of the head and neck was performed with 100 mL Omni paque-350 intravenous contrast. Multiplanar reconstructions and maximum intensity projection 3D-recon structions of the carotid arteries and of the intracranial arteries were created by the technologist on a separate workstation. Automated exposure control and iterative reconstruction technique were emp loyed.The dose-length product was 911.39 mGy-cm. COMPARISON: None. FINDINGS: Carotid arteries: Aortic arch and great vessels arising from the arch and the extracranial bilateral vertebral arteries are all normal in caliber with no stenosis or dissection. There is a small amount of atherosclerotic plaque with 0% stenosis of the right and left carotid bulbs relative to normal distal artery lumen d iameter (NASCET criteria). Mild emphysema in the visualized upper lungs. Cervical soft tissues are un remarkable. Moderate lower cervical spondylosis. Intracranial arteries There is no hemodynamically significant stenosis in the vertebral, basilar and internal carotid arter ies. Vertebral arteries are codominant. There are no aneurysms identified. The right A1 and bilateral P1 segments are patent. The left anterior cerebral artery supplied via right A1 segment and a patent anterior communicating artery. Cerebral arterial arborization appears symmetric. IMPRESSION: 1. Small mild atherosclerotic plaque with 0% stenosis of the right and left carotid bulbs relative to normal distal artery lumen diameter (NASCET criteria). 2. Normal anatomic variant supply of the left anterior cerebral artery by the right internal carotid artery and a patent anterior communicating artery. Otherwise unremarkable cerebral CT angiogram with no hematoma significant stenosis, aneurysm or thrombosis. Reviewed, dictated and finalized at location B. IMPRESSION: 1. Small mild atherosclerotic plaque with 0% stenosis of the right and left car otid bulbs relative to normal distal artery lumen diameter (NASCET criteria). 2. Normal anatomic variant supply of the left anterior cerebral artery by the r ight internal carotid artery and a patent anterior communicating artery. Otherw ise unremarkable cerebral CT angiogram with no hematoma significant stenosis, a neurysm or thrombosis.
--- NOTE | ~2024-05-05 | CT_ITS ---
EXAMINATION: CT brain wo con DATE: 05/05/2024 09:36 INDICATION: Left arm and face tingling TECHNIQUE: Computed tomography (CT) of the head was performed without intravenous contrast. Sagittal and coronal reconstructions were performed. The mA was adjusted according to patient size. Iterative reconstruction technique was employed. The dose-length product was 605.33 mGy-cm. COMPARISON: head CT dated 08/22/09 FINDINGS: No acute intracranial hemorrhage, acute infarction or abnormal extra axial fluid collection. Mild inc reased prominence of the subarachnoid spaces overlying the convexities consistent with minimal diffus e age appropriate volume loss. Ventricles are normal and symmetric. No mass/mass effect. The orbits, paranasal sinuses and mastoid air cells are normal. IMPRESSION: 1. Normal for age head CT. Reviewed, dictated and finalized at location B. IMPRESSION: 1. Normal for age head CT.
--- NOTE | ~2024-05-05 | XR_ITS ---
EXAMINATION: XR chest 1V portable DATE: 05/05/2024 09:40 INDICATION: Chest pain and left arm tingling TECHNIQUE: PA view of the chest was obtained. COMPARISON: Chest radiograph dated 06/19/2023 FINDINGS: The lungs remain clear with no focal airspace opacities, pulmonary edema, pleural effusion or pneumot horax. The cardiomediastinal silhouette is normal. Mild thoracic dextrocurvature with mild spondylosi s. Cholecystectomy clips in right upper quadrant. IMPRESSION: 1. No acute cardiopulmonary disease. Reviewed, dictated and finalized at location B.
--- NOTE | ~2024-05-05 | MR_ITS ---
EXAMINATION: MR brain/brain stem wo/w con DATE: 05/06/2024 12:42 INDICATION: Cerebrovascular accident. Paresthesias of the left arm and face. TECHNIQUE: Magnetic resonance imaging (MRI) of the brain and brainstem was performed without and with 20 mL ProHance intravenous contrast. COMPARISON: Head CT 05/05/2024 FINDINGS: There are scattered areas of nonspecific increased T2-weighted signal intensity in the cere bral white matter, which is within normal limits for the patient's age. There is no intracranial hemo rrhage, acute infarction, or abnormal intracranial mass lesion. The ventricles are normal in size. Th ere is a small left mastoid effusion. There are effusions of the petrous apices bilaterally. The para nasal sinuses are clear. The orbits are normal. IMPRESSION: 1. Normal aging brain. Reviewed, dictated and finalized at location A. IMPRESSION: 1. Normal aging brain.
[2024-05-05 09:00] LABS: Glucose Point of Care 105 mg/dl (65-105)
--- OUTSIDE RECORDS SUMMARY | 2024-05-05 09:07 | XMS_ITS | Encounter Summary ---
Author Organization [facility] Address [facility] [place] [address] Care Team Providers Care Artist'S Model Name Role Phone Lisa Ball MD Primary Care Provider + Encounter Details Date Type Department Care Team (Late Contact Info) Description 05/03/2024 Orders Only [facility] Family Medicine [facility] [address] [address] Lisa Ball MD [address] [place] [address] Social History Tobacco Use Types Packs/Day Years Used Date Smoking Tobacco: Some Days Cigarettes Smokeless Tobacco: Never Comments:Smokes one cigarett e every few weeks. Still vapes. Alcohol Use Standard Drinks/Week Comments No 0 (1 standard drink = 0.6 oz pur e alcohol) sober 16 years Comments No Sex and Gender Information Value Date Recorded Sex Assigned at Female 05/02/2024 4:05 PM CDT Legal Sex Female 7:34 PM CDT Gender Identity Female 05/02/2024 4:05 PM CDT Sexual Orientation Not on file Occupation Industry Job Start Date Job End Date [employer] [facility] Not on file Not o n file Not on file documented as of this encounter Plan of Treatment Upcoming Encounters Date Type Department Care Team (Late Contact Info) Description 05/20/2024 9:10 AM CDT Office Visit [facility] Family [facility] [address] [address] Lisa Ball MD [address] [facility] [place] [phone] 06/02/2024 4:[address] [facility] Mammography [address] [place] [address] Lisa Ball MD [address] [place] [address] 05/08/2025 2:40 PM CDT Office Visit [facility] Family [facility] - [place] [address] [place] [address] Lisa Ball MD [address] [place] [address] documented as of this encounter Procedures Procedure Name Priority Date/Time Associated Diagnosis Comments THYROXINE, FREE (FT4) 05/03/2024 3:45 PM CDT THYROID STIM HORMONE TSH 05/03/2024 3:45 PM CDT documented in this encounter Results * THYROID STIM HORMONE TSH (05/03/2024 3:45 PM CDT) TSH 1.640 0.450 - 4.50 uIU/mL [facility] 1 05/03/2024 3:45 PM CDT 05/03/2024 Narrative [facility] - 05/04/2024 11:07 AM CDT Performed at: 01 - [facility], [place], [place] [id number] Tree Cutter: Jordan Fitzgerald PhD, Phone: [phone] us Lisa Ball MD LABORATORY Final Re sult [facility] [address] [place] [address] [facility] 1 * THYROXINE, FREE (FT4) (05/03/2024 3:45 PM CDT) FREE T4 1.14 0.82 - 1.77 ng/dL [facility] 1 05/03/2024 3:45 PM CDT 05/03/2024 Narrative [facility] - 05/04/2024 11:07 AM CDT Performed at: 01 - [facility] [address] [id number] Tree Cutter: Jordan Fitzgerald PhD, Phone: [phone] us Lisa Ball MD LABORATORY Final Re sult [facility] [address] [place] [address] [facility] 1 documented in this encounter Visit Diagnoses Not on filedocumented in this encounter Care Teams Artist'S Model Relationship Specialty Start Date End Date Lisa Ball MD [address] [place] [address] PCP - General FAMILY PRACTICE 05/03/24 documented as of this encounter
--- OUTSIDE RECORDS SUMMARY | 2024-05-05 09:07 | XMS_ITS | CONTINUITY OF CARE DOCUMENT ---
Author Name oxana daigle Address Unknown Organization [facility] Address [address] [place] [address] [address] [place] [address] Phone [phone] Care Team Providers Care Inspector Exhaust Emissions Name Role Phone Amanda Godfrey MD Unavailable JAIMEE BELL MD Unavailable [phone] JAIMEE BELL MD Unavailable [phone] INSURANCE PROVIDERS Payer name Policy type / Coverage type Dearing red green party ID [id number]
--- OUTSIDE RECORDS SUMMARY | 2024-05-05 09:08 | XMS_ITS | Clinical Summary ---
Author Organization [facility] Address [facility] [place] [address] Care Team Providers Care Ranch Manager Name Role Phone Lisa Ball MD Primary Care Provider + Allergies No known active allergies Medications CHROMIUM OR Take 2 tablets by mouth daily. Active ciclopirox (LOPROX) 0.77 % creamIndication s:Onychomycosis Apply topically 2 (two) times daily. Apply to affected nails 30 g 3 Active Active Problems Problem Noted Date Diagnosed Date Morbid obesity 05/03/2024 Assessment & Plan (05/03/2024 3:19 PM CDT): Encouraged lifestyle changes. Onychomycosis 05/03/2024 Chronic bilateral low back pain without sciatica 07/29/2016 Encounters Date Type Department Care Team Description 05/03/2024 2:00 PM CDT Office Visit [address] [place] [phone] Lisa Ball MD Establish Care 05/03/2024 Orders Only [facility] [address] [facility] [address] [place] [address] Lisa Ball MD 05/03/2024 Travel from Last 3 Months Immunizations Name Administration Dates Next Due Hepatitis A (Havrix [address]) 11/25/2001 Shingrix 05/03/2024 Tdap (Adacel) 05/03/2024 Family History Medical History Relation Comments No Known Problems Brother No Known Problems Daughter Diabetes Father Arthritis Mother Diabetes Mother Heart Attack Mother Heart Disease Mother Macular Degeneration Mother Retinal Detachment Sister 1 No Known Problems Sister 2 No Known Problems Sister 3 No Known Problems Sister 4 Diabetes type I Son 1 No Known Problems Son 2 Relation Status Comments Brother Alive Daughter Alive Father Mother Sister 1 Alive Sister 2 Alive Sister 3 Alive Sister 4 Alive Son 1 Alive Son 2 Alive Social History Tobacco Use Types Packs/Day Years Used Date Smoking Tobacco: Some Days Cigarettes Smokeless Tobacco: Never Tobacco Cessation:Ready to Q uit: Yes; Counseling Given: Yes Comments:Smokes one cigarette every few weeks. Still vapes. Alcohol Use [...] Industry Job Start Date Job End Date [employer] Not on file Not o n file Not on file Last Filed Vital Signs Vital Sign Reading Time Taken Comments Blood Pressure 136/86 05/03/2024 2:10 PM CDT Pulse 91 05/03/2024 2:10 PM CDT Temperature 36.8 C (98.3 F) 05/03/2024 2:10 PM CDT Respiratory Rate 16 09/23/2018 11:58 AM CDT Oxygen Saturation 96% 05/03/2024 2:10 PM CDT Inhaled Oxygen Concentration - - Weight 94.2 kg (207 lb 9.6 oz) 05/03/2024 2:10 P M CDT Height 160 cm (5' 3 ) 05/03/2024 2:10 PM CDT Body Mass Index 36.77 05/03/2024 2:10 PM CDT Plan of Treatment Upcoming Encounters Date Type Department Care Team (Late st Contact Info) Description 05/20/2024 9:10 AM CDT Office Visit [facility] Family [facility] [address] [facility] [address] [place] [address] Lisa Ball MD [address] [place] [address] 06/02/2024 4:40 PM CDT Appointment [facility] Mammography [address] [place] [address] Lisa Ball MD [address] [place] [phone] 05/08/2025 2:40 PM CDT Office Visit [facility] Family Medicine - [place] [address] [place] [phone] Lisa Ball MD [address] [place] [phone] Health Maintenance Due Date Last Done Comments Cervical Cancer Screening Pa p Smear (Age 30 to 64) Every 3 Years 1972 Colorectal Cancer Screening Colonoscopy (10 Years) 1972 Pneumococcal Vaccine: Pediat rics (0 to 5 Years) and At-Risk Patients (6 to 64 Years) (1 of 2 - PCV) 1978 Hepatitis C 1990 Hepatitis B Vaccines (1 of 3 - 19+ 3-dose series) 06/13/1991 Cervical Cancer Screening Pa p with HPV Testing (Age 30 to 64) Every 5 Years 2002 Cervical Cancer Screening with HPV 2002 Mammogram Screening 2012 COVID-19 Vaccine ( - 2023-2 5 season) 2023 Influenza Adult (#1) 2023 PHQ-2 (Physician [place]) 02/10/2024 Zoster Vaccines (2 of 2) 06/28/2024 05/03/2024 Annual Physical 05/03/2025 05/03/2024 DTaP, Tdap and Td Vaccines ( 2 - Td or Tdap) 05/03/2034 05/03/2024 Meningococcal B Vaccine Aged Out No l onger eligible based on patient's age to complete this topic Meningococcal Vaccine Aged Out No yeison michelle eligible based on patient's age to complete this topic RSV Immunizations Under 20 Months Aged Out No longer eligible based on patient's age to complete this topic Procedures Procedure Name Priority Date/Time Associated Diagnosis Comments THYROID STIM HORMONE TSH 05/03/2024 3:45 PM CDT THYROXINE, FREE (FT4) 05/03/2024 3:45 PM CDT from Last 3 Months Results * THYROXINE, FREE (FT4) (05/03/2024 3:45 PM CDT) FREE T4 1.14 0.82 - 1.77 ng/dL [facility] 1 05/03/2024 3:45 PM CDT 05/03/2024 Narrative [facility] - 05/04/2024 11:07 AM CDT Performed at: [facility] [id number] News Production Supervisor: Jordan Fitzgerald PhD, Phone: [phone] us Lisa Ball MD LABORATORY Final Re sult Performing Organization Address [facility] Co de Phone Number [facility] [address] [place] [address] [facility] 1 * THYROID STIM HORMONE TSH (05/03/2024 3:45 PM CDT) TSH 1.640 0.450 - 4.50 uIU/mL [facility] 1 05/03/2024 3:45 PM CDT 05/03/2024 Narrative [facility] - 05/04/2024 11:07 AM CDT Performed at: [address] [id number] News Production Supervisor: Jordan Fitzgerald PhD, Phone: [phone] us Lisa Ball MD LABORATORY Final Re sult Performing Organization Address [facility] Co de Phone Number [facility] [address] [phone] [facility] 1 from Last [address] [facility] Care Teams Ranch Manager Relationship Specialty Start Date End Date Lisa Ball MD [address] [facility] [address] [place] [phone] PCP - General FAMILY PRACTICE 05/03/24
--- OUTSIDE RECORDS SUMMARY | 2024-05-05 09:08 | XMS_ITS | Referral Summary ---
Author Organization [facility] Address [address] [place] [address] Care Team Providers Care Production Machine Operator Name Role Phone Carlos Yee MD Primary Care Provider Allergies Active Allergy Reactions Criticality Noted Date Comments Acetaminophen-Codeine Chest tightness Medium 3 Medications cyclobenzaprine (FLEXERIL) 10 mg tablet 10 MG ORALLY THREE TIMES A DAY NEEDED FOR MUSCLE SPASM 11/18/2022 Active PARoxetine (PAXIL) 10 mg tablet Take 1 tablet (10 mg total) by mouth every morning 11/27/2022 Active amoxicillin-cla vulanate (AUGMENTIN) 875-125 mg per tablet Take 1 tablet by mouth every 12 (twelve) hours 11/18/[address] (VOLTAREN) 75 mg EC tabletIndicatio ns:Lumbar pain Take 1 tablet (75 mg total) by mouth 2 (two) times a day 60 tablet 01/12/2023 Active Active Problems No known active problems Social History Tobacco Use Types Packs/Day Years Used Date Smoking Tobacco: Every Day Cigarettes Smokeless Tobacco: Never Tobacco Cessation:Ready to Q uit: Not Asked; Counseling Given: Not Answered AUDIT-C Answer Date Recorded Q1: How often do you have a drink containing alc ohol? 2-4 times a month 01/12/2023 Q2: How many drinks containi ng alcohol do you have on a typical day when you are drinking? 1 or 2 01/12/2023 Q3: How often do you have si x or more drinks on one occasion? 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 Not on file Not on file Last Filed Vital Signs Vital Sign Reading Time Taken Comments Blood Pressure - - Pulse - - Temperature - - Respiratory Rate - - Oxygen Saturation - - Inhaled Oxygen Concentration - - Weight 86.2 kg (190 lb) 01/12/2023 1:16 PM PARKING STATION ATTENDANT Height 157.5 cm (5' 2 ) 01/12/2023 1:16 PM PARKING STATION ATTENDANT Body Mass Index 34.75 01/12/2023 1:16 PM PARKING STATION ATTENDANT Plan of Treatment Not on file Insurance [facility] CHOICE PLUS Member Subscriber Plan / Payer (Ef fective 2022-Present) Name:Radha Chow Relation to Subscriber:Spouse Name:NICHOLAS CHOW Date of :1977 Address: [address] [place] [address] Payer ID:[id number] (NAIC) Type:[facility] HMO/PPO Address: [facility] [address] [place] [address] Care Teams Production Machine Operator Relationship Specialty Start Date End Date Carlos Yee MD PCP - General Emergency Medicine 12/11/22
--- NOTE | 2024-05-05 09:27 | ECG_ITS ---
Test Date: 2024-05-05 09:46:35 Measurements Intervals [place] Rate: 90 P: 31 GA: 130 QRS: -2 QRSD: 106 T: 7 QT: 337 QTc: 414 Interpretive Statements SINUS RHYTHM LOW QRS VOLTAGE IN PRECORDIAL LEADS [QRS DEFLECTION < 1.0 mV IN CHEST LEADS] No previous ECG available for comparison Electronically Signed On 05-05-2024 11:48:09 CDT by Ridge Andrews M.D.
[2024-05-05 09:49] LABS: Basophils Absolute Auto 0.1 K/mm3 (0.0-0.1); Eosinophils Absolute Auto 0.2 K/mm3 (0-0.3); Eosinophils Percent Auto 1.9 % (0-4.4); Hematocrit 41.5 % (37.0-47.0); Hemoglobin 13.9 g/dL (12.0-15.0); Immature Granulocyte Absolute 0.04 K/mm3 (0.00-0.031); Immature Granulocyte Percent A 0.4 % (0-0.5); Lymphocytes Absolute Auto 1.91 K/mm3 (0.9-3.2); Lymphocytes Percent Auto 20.2 % (18.3-44.2); Mean Corpuscular HGB Conc 33.5 g/dl (32-36); Mean Corpuscular Hemoglobin 28.9 pg (26-34); Mean Corpuscular Volume 86.3 fl (80-100); Mean Platelet Volume 10.6 fl (7.4-10.4); Monocytes Absolute Auto 0.9 K/mm3 (0.1-0.6); Monocytes Percent Auto 9.7 % (2.6-8.5); Neutrophils Absolute Auto 6.3 K/mm3 (1.3-6.7); Neutrophils Percent Auto 66.8 % (45.5-73.1); Platelet Count Result 316 k/mm3 (150-375); Red Blood Count 4.81 M/mm3 (4.2-5.4); Red Cell Distribution Width 13.1 % (11.5-14.5); White Blood Count 9.5 K/mm3 (4.5-10.0)
[2024-05-05 09:58] LABS: Alanine Aminotransferase 45 U/L (6-35); Albumin Level 4.5 g/dL (3.5-5.1); Alkaline Phosphatase 98 U/L (38-126); Anion Gap 10 mmol/L (4-12); Aspartate Amino Transferase 37 U/L (14-36); Bilirubin,Total 0.6 mg/dL (0.2-1.3); Blood Urea Nitrogen 8 mg/dL (7-17); Calcium 9.5 mg/dL (8.4-10.2); Carbon Dioxide 29 mmol/L (22-30); Chloride 99 mmol/L (98-107); Estimated CRCL calculation 95 ml/min; Estimated Glomerular Filt Rate > 60; Glucose 97 mg/dL (65-110); Magnesium 2.1 mg/dL (1.6-2.3); Potassium 3.9 mmol/L (3.4-5.0); Sodium 138 mmol/L (137-145)
--- NOTE | 2024-05-05 10:01 | ED.NEUROSD ---
HPI - Neuro Symptoms/Deficit General Chief Complaint: Neuro Symptoms/Deficit Stated Complaint: left arm numb, facial tingling LKN 0400 Time Seen by Provider: 05/05/24 08:56 Source: patient Mode of arrival: ambulatory Limitations: no limitations History of Present Illness HPI Narrative: Patient is a 53-year-old female, with PMH of daily smoking, who presents the ED with report of paresthesias. Patient reports she woke up at 4:00 a.m. this morning and notice a tingling sensation in her left arm and left-sided face around 4:15 a.m.. States she went to work and symptoms persisted, which prompted her presentation. States facial tingling is resolved currently. Still having tingling in her left arm. She denies numbness. Denies weakness of extremities. Denies slurred speech, confusion, vision changes, difficulty ambulating. Denies history of similar symptoms. Does have history of chronic neck pain, but states pain is no worse than usual today. Has had some intermittent chest pain over the last few days. Denies significant difficulty breathing. Denies cough or cold symptoms. Related Data Allergies Allergy/AdvReac Type Severity Reaction Status Date / Time No Known Allergies Allergy Verified 06/19/23 10:55 Review of Systems Review of Systems: All systems reviewed & are unremarkable except as noted in HPI. All systems reviewed & are unremarkable except as noted in HPI and below PMFSH Past Medical History Medical History No pertinent past medical history Surgical History Surgical History History of section Social History Social History Smoking status: Current every day smoker Tobacco type: cigarettes Alcohol intake: never Substance use: never Occupation/Education: occupation Additional occupation/education comments: [employer] Ex[employer] Narrative: GENERAL: Well appearing, obese with BMI of 37.5, non-toxic, in no acute distress. HEAD: Normocephalic, atraumatic. EYES: PERRL/EOMI, conjunctivae clear bilaterally. No nystagmus. NECK: Supple. No meningeal signs. RESPIRATORY: Airway patent, respirations nonlabored. Clear to auscultation bilaterally, no rales, rhonchi, wheezing. CARDIOVASCULAR: Regular rate and rhythm without murmurs, rubs, or gallops. Peripheral pulses 2+ and equal bilaterally. MUSCULOSKELETAL: Moves all extremities. No gross deformities. SKIN: Warm, dry, normal color. No rashes. NEURO: A&O X3. Speech clear. Follows commands. CN II-XII intact. No facial droop or asymmetry. Sensation grossly intact, subjective decreased sensation to LUE and V1 distribution of face. Steady gait. No ataxic movements. Strength 5/5 in upper and lower extremities bilaterally. Ewhm-yb-yqvg and zsldzh-eq-gmfo testing intact bilaterally. No pronator drift. Equal architectural technologist strength bilaterally. PSYCHIATRIC: Appropriate mood and affect. Normal interaction. Course Vital Signs Vital signs: Vital Signs Temperature 98.0 F 05/05/24 08:53 Pulse Rate 100 05/05/24 08:53 Respiratory Rate 18 05/05/24 08:53 Blood Pressure 154/76 H 05/05/24 08:53 Pulse Oximetry 97 05/05/24 08:53 Temperature 98.0 F 05/05/24 08:53 Pulse Rate 100 05/05/24 11:18 Respiratory Rate 19 05/05/24 11:18 Blood Pressure 145/114 H 05/05/24 11:18 Pulse Oximetry 95 05/05/24 11:18 MDM - Neuro Symptoms/Deficit MDM Narrative Medical decision making narrative: Patient presented to ED with paresthesias of left arm and left-sided face that began around 4:15 a.m. this morning. Vital signs are stable upon arrival. Upon my evaluation, patient is neurologically intact. She does not have any appreciable focal deficits. No strength discrepancies. Does report some subjective decreased sensation to left upper extremity and left forehead. Regardless, patient is out of the window for any thrombolytic therapy. EKG with normal sinus rhythm, no concerning ST changes or arrhythmias. Basic laboratory studies are unremarkable. Stable kidney function and electrolytes. Troponin undetectable. UA clear. Chest x-ray is clear. CT brain was negative. CTA brain and carotids showing small amount of atherosclerotic plaque, but no significant carotid stenosis, no LVO, aneurysm. Unclear etiology ED to paresthesias. Differential includes MS, peripheral neuropathy, CVA/TIA, pinched nerve related to musculoskeletal etiology, anxiety. Patient reports chronic neck pain, denies worsening of pain today. Discussed case with Dr. Poole, neurology, recommended admission for MRI/ECHO, he will consult on patient today. Recommended ASA, lipitor 40mg daily. Discussed case with Dr. House, hospitalist, accepted patient for admission. Patient in agreement with plan and admission. Differential Diagnosis Differential diagnosis: Likely carpal tunnel syndrome, peripheral neuropathy, cerebrovascular accident, multiple sclerosis, transient cerebral ischemia and other Medical Records Attestation: I reviewed the patient's medical records. Lab Data Attestation: I reviewed the patient's lab results. 05/05/24 09:43 05/05/24 09:43 Labs: Lab Results 05/05/24 05/05/24 05/05/24 Range/Units 08:57 09:43 10:22 WBC 9.5 (4.5-10.0) K/mm3 RBC 4.81 (4.2-5.4) M/mm3 Hgb 13.9 (12.0-15.0) g/dL Hct 41.5 (37.0-47.0) % MCV 86.3 (80-100) fl MCH 28.9 (26-34) pg MCHC 33.5 (32-36) g/dl RDW 13.1 (11.5-14.5) % Plt Count 316 (150-375) k/mm3 MPV 10.6 H (7.4-10.4) fl Immature Gran % (Auto) 0.4 (0-0.5) % Neut % (Auto) 66.8 (45.5-73.1) % Lymph % (Auto) 20.2 (18.3-44.2) % [place] % (Auto) 9.7 H (2.6-8.5) % Eos % (Auto) 1.9 (0-4.4) % Baso % (Auto) 1.0 (0.2-1.2) % Lymph # (Auto) 1.91 (0.9-3.2) K/mm3 [place] # (Auto) 0.9 H (0.1-0.6) K/mm3 Eos # (Auto) 0.2 (0-0.3) K/mm3 Baso # (Auto) 0.1 (0.0-0.1) K/mm3 Abs Immat Gran (auto) 0.04 H (0.00-0.031) K/mm3 Absolute Neuts (auto) 6.3 (1.3-6.7) K/mm3 Absolute Nucleated RBC 0.000 (0.0-0.012) K/mm3 Nucleated RBC % 0.0 (0.0-0.2) % PT 13.4 (11.1-14.7) Seconds INR 1.0 APTT 29.7 (22.3-36.8) Seconds Sodium 138 (137-145) mmol/L Potassium 3.9 (3.4-5.0) mmol/L Chloride 99 (98-107) mmol/L Carbon Dioxide 29 (22-30) mmol/L Anion Gap 10 (4-12) mmol/L BUN 8 (7-17) mg/dL Creatinine 0.66 L (0.7-1.0) mg/dL Estim Creat Clear Calc 95 ml/min Estimated GFR > 60 (59 - ) Glucose 97 (65-110) mg/dL POC Capillary Glucose 105 (65-105) mg/dl Calcium 9.5 (8.4-10.2) mg/dL Magnesium 2.1 (1.6-2.3) mg/dL Total Bilirubin 0.6 (0.2-1.3) mg/dL AST 37 H (14-36) U/L ALT 45 H (6-35) U/L Alkaline Phosphatase 98 (38-126) U/L Troponin I < 0.012 (0.000-0.034) ng/mL Total Protein 8.0 (6.3-8.2) g/dL Albumin 4.5 (3.5-5.1) g/dL Urine Color Yellow (Yellow) Urine Appearance Clear (Clear) Urine pH 6.5 (5.0-9.0) Ur Specific [place] 1.027 (1.001-1.035) Urine Protein Negative (Negative) mg/dL Urine Glucose (UA) Negative (Negative) mg/dL Urine Ketones Negative (Negative) mg/dL Ur Blood (Man) Negative (Negative) Urine Nitrate Negative (Negative) Urine Bilirubin Negative (Negative) Urine Urobilinogen 0.2 (<2.0) mg/dL Leukocyte Esterase Rfl Negative (Negative) MARTHA/UL Imaging Data Attestation: I personally reviewed and interpreted this imaging study as follows: Radiologist's impression: ITS Impressions Head CT 05/05/24 09:40 IMPRESSION: 1. Normal for age head CT. Chest X-Ray 05/05/24 09:45 IMPRESSION: 1. No acute cardiopulmonary disease. Head/Neck CTA 05/05/24 10:20 IMPRESSION: 1. Small mild atherosclerotic plaque with 0% stenosis of the right and left carotid bulbs relative to normal distal artery lumen diameter (NASCET criteria). 2. Normal anatomic variant supply of the left anterior cerebral artery by the right internal carotid artery and a patent anterior communicating artery. Otherwise unremarkable cerebral CT angiogram with no hematoma significant stenosis, aneurysm or thrombosis. ECG Data EKG #1: Attestation: I personally reviewed and interpreted this ECG as follows: ECG completion date: 05/05/24 ECG completion time: 09:46 EKG Interpretation: normal rate (90), sinus rhythm and no ST changes Discharge Plan Discharge Clinical Impression: Facial paresthesia, Paresthesia of left arm Patient Disposition: Still a Patient Condition: Stable Patient Language: Mexican Prescriptions: No Action amoxicillin 875 mg tablet 875 mg PO Q12H Qty: 20 0RF acetaminophen 500 mg capsule 500 mg PO Q6H PRN (Reason: fever or pain) Qty: 30 0RF cephalexin 500 mg capsule 500 mg PO Q6H 7 Days Qty: 28 0RF hydrocodone-acetaminophen 5-325 mg tablet 1 tablet PO Q6H PRN (Reason: pain) Qty: 6 0RF amoxicillin-pot clavulanate 875-125 mg tablet 1 tablet PO Q12H 10 Days Qty: 20 0RF amoxicillin-pot clavulanate 875-125 mg tablet 1 tablet PO Q12H Qty: 20 0RF erythromycin 5 mg/gram (0.5 %) ointment 1 applic RIGHT EYE DAILY Qty: 3.5 0RF ibuprofen 600 mg tablet 600 mg PO TID PRN (Reason: pain) Qty: 14 0RF penicillin V potassium 500 mg tablet 500 mg PO TID Qty: 30 0RF cyclobenzaprine 10 mg tablet 10 mg PO TID PRN (Reason: muscle spasm) Qty: 14 0RF lidocaine 5 % adhesive patch,medicated 1 patch topical DAILY Qty: 15 0RF Rx Instructions: leave on most painful area for up to 12 hrs. do not use more than 1 patch in a 24-hour period. amoxicillin-pot clavulanate 875-125 mg tablet 1 tablet PO Q12H Qty: 14 0RF Follow-up/Referrals: UNKNOWN,DOCTOR [Primary Care Provider] -
[2024-05-05 10:02] LABS: Prothrombin Time 13.4 Seconds (11.1-14.7)
[2024-05-05 10:03] LABS: Partial Thromboplastin Time 29.7 Seconds (22.3-36.8)
[2024-05-05 10:10] LABS: Troponin I < 0.012 ng/mL (0.000-0.034)
--- OUTSIDE RECORDS SUMMARY | 2024-05-05 10:30 | XMS_ITS | Clinical Summary ---
Author Organization [facility] Address [facility]ly [facility] [place] [address] Care Team Providers Care Watch Crystal Molder Name Role Phone Lisa Ball MD Primary [...] Description 05/03/2024 2:00 PM CDT Office Visit [address] [place] [address] Lisa Ball MD Establish Care 05/03/2024 Orders Only [facility] [address] [facility] [address] [place] [address] Lisa Ball MD 05/03/2024 Travel from Last [...] Industry Job Start Date Job End Date [facility] Not on file Not o n [...] Description 05/20/2024 9:10 AM CDT Office Visit [facility] Family [facility] [address] [facility] [address] [place] [phone] Lisa Ball MD [address] [place] [phone] 06/02/2024 4:40 PM CDT Appointment [facility] [address] [place] [address] Lisa Ball MD [address] [place] [address] [phone] 05/08/2025 2:40 PM CDT Office Visit [facility] Family [facility] - [place] [address] [place] [address] [phone] Lisa Ball MD [address] [place] [address] [phone] Health Maintenance Due Date Last Done Comments [...] 2023 Influenza Adult (#1) 2023 PHQ-2 (Physician [place]) 02/10/2024 Zoster Vaccines (2 of 2) 06/28/2024 [...] - 05/04/2024 11:07 AM CDT Performed at: [facility] [id number] Bias Cutting Machine Operator: Jordan Fitzgerald PhD, Phone: [phone] us Lisa Ball MD LABORATORY Final Re sult Performing Organization Address [facility] Co de Phone Number [facility] [address] [place] [address] [facility] 1 * THYROID STIM HORMONE TSH (05/03/2024 3:45 PM CDT) TSH 1.640 0.450 - 4.50 uIU/mL [facility] 1 05/03/2024 3:45 PM CDT 05/03/2024 Narrative [facility] - 05/04/2024 11:07 AM CDT Performed at: [address] [id number] Bias Cutting Machine Operator: Jordan Fitzgerald PhD, Phone: [phone] us Lisa Ball MD LABORATORY Final Re sult Performing Organization Address [facility] Co de Phone Number [facility] [address] [phone] [facility] 1 from Last 3 Months Insurance [facility] Care Teams Watch Crystal Molder Relationship Specialty Start Date End Date Lisa Ball MD [address] [facility] [address] [place] [id number] PCP - General FAMILY PRACTICE 05/03/24
--- OUTSIDE RECORDS SUMMARY | 2024-05-05 10:30 | XMS_ITS | Encounter Summary ---
Author Organization [facility] Address [facility] [place] [address] Care Team Providers Care Human Resources Benefits Assistant Name Role Phone Lisa Ball MD Primary Care Provider + Encounter Details Date Type Department Care Team (Late Contact Info) Description 05/03/2024 Orders Only [facility] Family Medicine [facility] [address] [address] Lisa Ball MD [address] [place] [phone] Social History Tobacco Use Types Packs/Day [...] Industry Job Start Date Job End Date [facility] Not on file Not o n file Not on file documented as of this encounter Plan of Treatment Upcoming Encounters Date Type Department Care Team (Late Contact Info) Description 05/20/2024 9:10 AM CDT Office Visit [facility] Family [facility] [address] [address] Lisa Ball MD [address] [facility] [place] [phone] 06/02/2024 4:40 PM CDT Appointment [facility] [address] [place] [address] Lisa Ball MD [address] [place] [phone] 05/08/2025 2:40 PM CDT Office Visit [facility] Family Medicine - [place] [address] [place] [address] Lisa Ball MD [address] [place] [phone] documented as of this encounter Procedures [...] 11:07 AM CDT Performed at: 01 - [facility], [place], [place] [id number] Bituminous Distributor Operator: Jordan Fitzgerald PhD, Phone: [phone] us Lisa Ball MD LABORATORY Final Re sult [facility] [address] [place] [address] [facility] 1 * THYROXINE, FREE (FT4) (05/03/2024 3:45 PM CDT) FREE T4 1.14 0.82 - 1.77 ng/dL [facility] 1 05/03/2024 3:45 PM CDT 05/03/2024 Narrative [facility] - 05/04/2024 11:07 AM CDT Performed at: 01 - [facility] [address] [id number] Bituminous Distributor Operator: Jordan Fitzgerald PhD, Phone: [phone] us Lisa Ball MD LABORATORY Final Re sult [facility] [address] [place] [address] [facility] 1 documented in this encounter Visit Diagnoses Not on filedocumented in this encounter Care Teams Human Resources Benefits Assistant Relationship Specialty Start Date End Date Lisa Ball MD [address] [place] [phone] PCP - General FAMILY PRACTICE 05/03/24 documented as of this encounter
--- OUTSIDE RECORDS SUMMARY | 2024-05-05 10:30 | XMS_ITS | Referral Summary ---
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 Not on file Not on file Last Filed Vital Signs Vital Sign Reading Time Taken Comments Blood Pressure - - Pulse - - Temperature - - Respiratory Rate - - Oxygen Saturation - - Inhaled Oxygen Concentration - - Weight 86.2 kg (190 lb) 01/12/2023 1:16 PM CUT OFF OPERATOR SCORER Height 157.5 cm (5' 2 ) 01/12/2023 1:16 PM CUT OFF OPERATOR SCORER Body Mass Index 34.75 01/12/2023 1:16 PM CUT OFF OPERATOR SCORER Plan of Treatment Not on file Insurance [facility] CHOICE PLUS [facility] HMO/PPO Address: [facility] [address] [place] [address] Care Teams Ammonia Distiller Relationship Specialty Start Date End Date Carlos Yee MD PCP - General Emergency Medicine 12/11/22
--- OUTSIDE RECORDS SUMMARY | 2024-05-05 10:30 | XMS_ITS | CONTINUITY OF CARE DOCUMENT ---
Author Name oxana daigle Address Unknown Organization [facility] Address [address] [place] [address] [address] [place] [address] Phone [phone] Care Team Providers Care Player Development Manager Name Role Phone Amanda Godfrey MD Unavailable [phone] JAIMEE BELL MD Unavailable [phone] JAIMEE BELL MD Unavailable [phone] INSURANCE PROVIDERS Payer name Policy type / Coverage type [place] red democrat ID [id number]
--- OUTSIDE RECORDS SUMMARY | 2024-05-05 10:30 | XMS_ITS | Clinical Summary ---
Author Organization [facility] Address [address] [place] [address] Care Team Providers Care Marketing Area Manager Name Role Phone Carlos Yee MD Primary [...] Active Active Problems No known active problems Surgical History Surgery Date Site/Laterality Comments SECTION CHOLECYSTECTOMY Medical History Medical History Date Comments Anxiety Depression Lumbar facet arthropathy Family History Medical History Relation Name Comments Diabetes Father Arthritis Mother Diabetes Mother Heart disease Mother Relation Name Status Comments Father Mother Social History Tobacco Use Types Packs/Day Years [...] 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 Not on file Obstetrics History Last Filed Vital Signs Vital Sign Reading Time Taken Comments Blood Pressure - - Pulse - - Temperature - - Respiratory Rate - - Oxygen Saturation - - Inhaled Oxygen Concentration - - Weight 86.2 kg (190 lb) 01/12/2023 1:16 PM SHEET METAL ASSEMBLER AND RIVETER Height 157.5 cm (5' 2 ) 01/12/2023 1:16 PM SHEET METAL ASSEMBLER AND RIVETER Body Mass Index 34.75 01/12/2023 1:16 PM SHEET METAL ASSEMBLER AND RIVETER Plan of Treatment Health Maintenance Due Date Last Done Comments Breast Cancer Screening-Mammogram 1972 Cervical Cancer Screening 1972 Colon Cancer Screening-Colonoscopy 1972 Depression Screening 1972 Hepatitis C Screening 1972 DTaP/Tdap/Td Vaccine (1 - Tdap) 06/13/1983 Hepatitis B Screening 1990 Regular Well Visit/Exam 18-64 1990 Pneumococcal vaccine <65 (1 of 2 - PCV) 06/13/1991 Zoster Vaccine (1 of 2) 2022 Covid-19 Vaccine (3 - season) 2023, 12/04/2020 Influenza Vaccine (#1) 2023 Insurance [facility] CHOICE PLUS Care Teams Marketing Area Manager Relationship Specialty Start Date End Date Carlos Yee MD PCP - General Emergency Medicine 12/11/22
[2024-05-05 10:38] LABS: Add Urine Microscopic? NO; Appearance Urine Clear (Clear); Bilirubin Urine Negative (Negative); Blood Urine Negative (Negative); Color Urine Yellow (Yellow); Glucose Urine UA Negative (Negative); Ketones Urine Negative (Negative); Leukocyte Esterase Ur Negative LEU/UL (Negative); Nitrate Urine Negative (Negative); Protein Urine Negative (Negative); Specific Grav Ur 1.027 (1.001-1.035); Urobilinogen Urine 0.2 mg/dL (<2.0); pH Urine 6.5 (5.0-9.0)
[2024-05-05] MEDS: ASPIRIN 81 MG CHEWABLE TABLET 324 MG PO (11:16)
[2024-05-05] MEDS: ATORVASTATIN 40 MG TABLET PO (11:17)
--- NOTE | 2024-05-05 12:06 | PC.NURSE ---
called to call report at this time, RN was in med pass and states she will call back when finished.
--- NOTE | 2024-05-05 12:25 | WPDNEURCNPN ---
Assessment and Plan Assessment and plan (1) Facial paresthesia: Code(s): R20.2 - Paresthesia of skin Status: Acute (2) Paresthesia of left arm: Code(s): R20.2 - Paresthesia of skin Status: Acute Plan the numbness in the face and left upper limb will raise possibility of right hemispheric lesion and hence an MRI of the brain is recommended. Echocardiogram should also be done. The meanwhile we can keep her on antiplatelets and statins. I discussed this with the [facility]. I also explained that sometimes the symptoms can occur from cervical spine however this needs to be carefully analyzed after we evaluate the results of her investigations. Her mother had myocardial infarction in her 60s. Other than that there is no other significant risk factor identified Consult date: 05/05/24 HPI: Radha Chow is a 53 year old female who presented to the emergency room with a history of onset of numbness in the left face and left upper limb around 4:00 a.m. this morning. Symptoms have persisted. No weakness in the upper or lower limbs. She has history of chronic pain neck pain and she still has some pain in the neck however in the past despite the neck pain she never had symptoms in the left arm or in the face. No history of diabetes mellitus or smoking. She does not have any history of cardiac disease. She works as a airline transport pilot and has been usually good health. In the Emergency the CT scan of brain and CT angiogram head and neck were performed which did not show any significant abnormalities. Review of Systems Constitutional: Constitutional: Denies chills, Denies fever(s) and Denies weight loss Eyes: Eyes: Denies diplopia and Denies loss of vision ENT: Denies dizziness, Denies hearing loss and Denies tinnitus Cardiovascular: Cardiovascular: Denies chest pain, Denies syncope and Denies dyspnea Respiratory: Respiratory: Denies cough, Denies dyspnea and Denies wheezing Gastrointestinal: Gastrointestinal: Denies abdominal pain, Denies change in bowel habits and Denies vomiting Genitourinary: Genitourinary: Denies urinary incontinence Musculoskeletal: Musculoskeletal: Denies arthralgias and Denies joint swelling Integumentary/Breasts: Skin/Breast: Denies new lesions and Denies rash Neurologic: Reports as per HPI, Denies dizziness, Denies syncope and Denies loss of vision Psychiatric: Psychiatric: Denies anxiety and Denies depression Endocrine: Endocrine: Denies cold intolerance and Denies heat intolerance Hematologic/Lymphatic: Hematologic/Lymphatic: Denies easy bleeding and Denies easy bruising Allergic/Immunologic: Allergic/Immunologic: Denies no additional allergic/immunologic complaints and Denies wheezing PMFSH Past Medical History Medical History No pertinent past medical history Surgical History Surgical History History of section Social History Social History Smoking status: Current every day smoker Tobacco type: cigarettes Alcohol intake: never Substance use: never Occupation/Education: occupation Additional occupation/education comments: [employer] Home Medications and Allergies Home Medications ?Medication ?Instructions ?Recorded ?Confirmed ?Type acetaminophen 500 mg capsule 500 mg PO Q6H PRN fever or pain 04/22/19 Rx #30 caps amoxicillin 875 mg tablet 875 mg PO Q12H #20 tabs 04/22/19 Rx cephalexin 500 mg capsule 500 mg PO Q6H 7 days #28 caps 08/17/21 Rx ibuprofen 600 mg tablet 600 mg PO TID PRN pain #14 tabs 10/12/21 Rx penicillin V potassium 500 mg 500 mg PO TID #30 tabs 10/12/21 Rx tablet amoxicillin 875 mg-potassium 1 tablet PO Q12H 10 days #20 tabs 03/04/22 Rx clavulanate 125 mg tablet hydrocodone 5 mg-acetaminophen 325 1 tablet PO Q6H PRN pain #6 tabs 03/04/22 Rx mg tablet amoxicillin 875 mg-potassium 1 tablet PO Q12H #20 tabs 04/26/22 Rx clavulanate 125 mg tablet erythromycin 5 mg/gram (0.5 %) eye 1 applic RIGHT EYE DAILY #3.5 grams 05/02/22 Rx ointment amoxicillin 875 mg-potassium 1 tablet PO Q12H #14 tabs 11/18/22 Rx clavulanate 125 mg tablet cyclobenzaprine 10 mg tablet 10 mg PO TID PRN muscle spasm #14 11/18/22 Rx tabs lidocaine 5 % topical patch 1 patch topical DAILY #15 ea 11/18/22 Rx Allergies Allergy/AdvReac Type Severity Reaction Status Date / Time No Known Allergies Allergy Verified 06/19/23 10:55 Vital Signs Vital Signs - 24 hr 05/05/24 08:53 05/05/24 08:59 05/05/24 11:18 Temperature 98.0 F Pulse Rate 100 101 H 100 Respiratory Rate 18 16 19 Blood Pressure 154/76 H 154/76 H 145/114 H Pulse Oximetry 97 95 05/05/24 11:53 Temperature Pulse Rate 108 H Respiratory Rate 18 Blood Pressure 145/63 H Pulse Oximetry 95 Exam Const: General: no acute distress Orientation/consciousness: oriented to person, oriented to place and oriented to time HENMT: Head: normocephalic and atraumatic Ears: hearing grossly normal bilaterally and external ears normal Face/Nose/Sinus: Normal external nose present Mouth: Yes Normal oral and palatal mucosa present Eyes: General: appearance normal, both eyes and all related structures Eyelids: eyelids normal Conjunctivae: conjunctivae normal Pupils: Equal, round and reactive pupils present EOM: No Nystagmus present Neck: Neck: normal visual inspection Resp: Effort & Inspection: normal respiratory effort Cardio: Rhythm: regular rhythm Other: No murmur Skin: General skin exam: normal color and no rashes or lesions noted Neuro: General: oriented to person, oriented to place and oriented to time Cranial nerves: Yes CN's II-XII intact bilaterally, Yes Equal, round and reactive pupils present, Yes Bilaterally intact EOM present, Yes Nystagmus not present, Yes Normal facial strength present, Yes facial symmetry, Yes Midline tongue present, Yes Symmetric palate elevation present, Yes Normal hearing present, Yes Ability to bilaterally elevate shoulders present and No Nystagmus present Speech: normal speech Motor exam (neuro): 5/5 motor strength present throughout, Normal motor muscle tone present throughout and Motor abnormalities not present Sensory Exam: normal sensation Deep tendon reflexes (DTR's): Right triceps reflex intensity grade: 1+, Left triceps reflex intensity grade: 1+, Rt Biceps (C5, C6): 1+, Left biceps reflex intensity grade: 1+, Right brachioradialis reflex intensity grade: 1+, Left brachioradialis reflex intensity grade: 1+, Right patellar reflex intensity grade: 1+, Left patellar reflex intensity grade: 1+, Right ankle reflex intensity grade: 1+ and Left ankle reflex intensity grade: 1+ Coordination: [id number] test normal, tandem gait normal and Romberg test negative Extrem: General: normal to inspection Psych: Affect: normal affect Attitude: cooperative Results Labs 05/05/24 09:43 05/05/24 09:43 Labs: Short CBC 05/05/24 Range/Units 09:43 WBC 9.5 (4.5-10.0) K/mm3 Hgb 13.9 (12.0-15.0) g/dL Hct 41.5 (37.0-47.0) % Plt Count 316 (150-375) k/mm3 BMP 05/05/24 09:43 Sodium 138 Potassium 3.9 Chloride 99 Carbon Dioxide 29 BUN 8 Creatinine 0.66 L Glucose 97 Calcium 9.5 Cardiac Enzymes 05/05/24 Range/Units 09:43 Troponin I < 0.012 (0.000-0.034) ng/mL Liver Function 05/05/24 Range/Units 09:43 Total Bilirubin 0.6 (0.2-1.3) mg/dL AST 37 H (14-36) U/L ALT 45 H (6-35) U/L Alkaline Phosphatase 98 (38-126) U/L Albumin 4.5 (3.5-5.1) g/dL Urine 05/05/24 Range/Units 10:22 Urine Color Yellow (Yellow) Urine Appearance Clear (Clear) Urine pH 6.5 (5.0-9.0) Ur Specific [place] 1.027 (1.001-1.035) Urine Protein Negative (Negative) mg/dL Urine Glucose (UA) Negative (Negative) mg/dL Imaging Radiologist's impression: EXAMINATION: CTA BRAIN/CAROTID DATE: 05/05/2024 10:13 INDICATION: Stroke with left arm and facial tingling TECHNIQUE: Computed tomographic angiography (CTA) of the head and neck was performed with 100 mL Omnipaque-350 intravenous contrast. Multiplanar reconstructions and maximum intensity projection 3D-reconstructions of the carotid arteries and of the intracranial arteries were created by the technologist on a separate workstation. Automated exposure control and iterative reconstruction technique were employed.The dose-length product was 911.39 mGy-cm. COMPARISON: None. FINDINGS: Carotid arteries: Aortic arch and great vessels arising from the arch and the extracranial bilateral vertebral arteries are all normal in caliber with no stenosis or dissection. There is a small amount of atherosclerotic plaque with 0% stenosis of the right and left carotid bulbs relative to normal distal artery lumen diameter (NASCET criteria). Mild emphysema in the visualized upper lungs. Cervical soft tissues are unremarkable. Moderate lower cervical spondylosis. Intracranial arteries There is no hemodynamically significant stenosis in the vertebral, basilar and internal carotid arteries. Vertebral arteries are codominant. There are no aneurysms identified. The right A1 and bilateral P1 segments are patent. The left anterior cerebral artery supplied via right A1 segment and a patent anterior communicating artery. Cerebral arterial arborization appears symmetric. IMPRESSION: 1. Small mild atherosclerotic plaque with 0% stenosis of the right and left carotid bulbs relative to normal distal artery lumen diameter (NASCET criteria). 2. Normal anatomic variant supply of the left anterior cerebral artery by the right internal carotid artery and a patent anterior communicating artery. Otherwise unremarkable cerebral CT angiogram with no hematoma significant stenosis, aneurysm or thrombosis. Reviewed, dictated and finalized at location B. EXAMINATION: CT brain wo [facility] DATE: 05/05/2024 09:36 INDICATION: Left arm and face tingling TECHNIQUE: Computed tomography (CT) of the head was performed without intravenous contrast. Sagittal and coronal reconstructions were performed. The mA was adjusted according to patient size. Iterative reconstruction technique was employed. The dose-length product was 605.33 mGy-cm. COMPARISON: head CT dated 08/22/09 FINDINGS: No acute intracranial hemorrhage, acute infarction or abnormal extra axial fluid collection. Mild increased prominence of the subarachnoid spaces overlying the convexities consistent with minimal diffuse age appropriate volume loss. Ventricles are normal and symmetric. No mass/mass effect. The orbits, paranasal sinuses and mastoid air cells are normal. IMPRESSION: 1. Normal for age head CT.
--- NOTE | 2024-05-05 12:30 | ADMGEN ---
This patient, Radha Chow, was admitted to [facility] Surg Room 301-01. Patient/family oriented to hospital policies and general routines including ID bracelet, bed and alarms, visiting hours, pain management, procedures, bathroom and other care routines, personal items, smoking policy, room service/diet, and visiting hours. Information on how to activate the Rapid Response Team has been discussed. Patient/Family are encouraged to report perceived risks to care and to ask questions if they do not understand what they are told or what they should do.
--- NOTE | 2024-05-05 14:14 | P.HP_ITS ---
H&P: HPI History of Present Illness Date/Time: 05/05/24 14:14 Chief Complaint: Left Sided Tingling Narrative: 53 year old female with no significant past medical history presents here for further evaluation of left-sided numbness. The patient presents here from home for further evaluation of left-sided tingling that is affecting her left arm and left face. She reports she went to bed at 10:00 p.m. in her normal state of health. She woke up around 4:00 a.m. and discovered she had the left-sided tingling sensation around 4:15 a.m. She initially dismissed these symptoms, however they persisted after she went to work prompting her to seek care. Since discovery, the facial tingling has resolved. She reports persistent tingling to her left upper extremity. She states these areas are more like paresthesias versus numbness. She denies accompanying focal weakness, changes in speech, changes in balance, gait disturbance, blurred vision, dizziness, or headache. She has no previous significant neurological history or history of stroke. She is a current everyday smoker. She reports this evening that the paresthesias to her face have also resolved, she is unsure what time. Initial VS at presentation: 98? F, HR 100, R 18, 154/76, and 97% on RA. ED workup showed: No leukocytosis, no anemia, normal coags, no significant electrolyte derangements, creatinine 0.66 and GFR >60, AST 37, ALT 45, initial troponin negative, and UA unremarkable. Head CT showed brain normal for age. CXR showed no acute cardiopulmonary disease. Head/neck CTA showed small mild atherosclerotic plaque with 0% stenosis of the right and left carotid bulbs relative to normal distal artery lumen diameter (NASCET criteria) and normal anatomic variant supply of the left anterior cerebral artery by the right internal carotid artery and a patent anterior communicating artery. EKG showed NSR, rate 90, low QRS voltage in precordial leads. Review of Systems Review of Systems: All systems reviewed & are unremarkable except as noted in HPI and below PMFSH Past Medical History Medical History Current smoker No pertinent past medical history Surgical History Surgical History History of section History of tubal ligation History of cholecystectomy Social History Social History Smoking packs per day: 1 Smoking cigarettes per day: 20.0 Years smoked: 25 Smoking pack-years: 25.00 Smoking status: Former smoker Tobacco type: cigarettes Smoking end date: 04/22/23 Alcohol intake: never Substance use: never Do You Feel Safe in your Home?: Yes Lack of Transportation: No Lack of Food: Never True Current Housing: I Have Housing Concerned About Future Housing: No Difficulty Paying Gas/Electric Bills: No Difficulty Paying for Meds: No Currently Unemployed: No Education: Decline to Answer Difficulty w/ Childcare or Family Care: No Occupation/Education: occupation Additional occupation/education comments: [employer] Spiritual care concerns: No Meds Home Medications and Allergies Home Medications ?Medication ?Instructions ?Recorded ?Confirmed ?Type acetaminophen 500 mg capsule 500 mg PO Q6H PRN fever or pain 04/22/19 05/05/24 Rx #30 caps ibuprofen 600 mg tablet 600 mg PO TID PRN pain #14 tabs 10/12/21 05/05/24 Rx Allergies Allergy/AdvReac Type Severity Reaction Status Date / Time No Known Allergies Allergy Verified 06/19/23 10:55 Vital Signs Vital Signs - 24 hr 05/05/24 08:53 05/05/24 08:59 05/05/24 11:18 Temperature 98.0 F Pulse Rate 100 101 H 100 Respiratory Rate 18 16 19 Blood Pressure 154/76 H 154/76 H 145/114 H Pulse Oximetry 97 95 05/05/24 11:53 05/05/24 12:25 05/05/24 12:45 Temperature 97.1 F L Pulse Rate 108 H 98 106 H Respiratory Rate 18 18 16 Blood Pressure 145/63 H 144/57 H 134/67 Pulse Oximetry 95 97 95 Exam Const: General: comfortable and no acute distress Other: , female, nontoxic appearance HENMT: Face/Nose/Sinus: Normal nares present Mouth: Yes moist mucous membranes Eyes: General: appearance normal, both eyes and all related structures Sclera: sclerae normal Pupils: Equal, round and reactive pupils present EOM: EOMs intact bilaterally Resp: Effort & Inspection: normal respiratory effort Auscultation: clear to auscultation bilaterally Cardio: Rate: regular rate Rhythm: regular rhythm Other: S1-S2 present without murmur, rub, ectopy GI: Other: Abdomen soft, nondistended, nontender. Normoactive bowel sounds in all quadrants. Skin: General skin exam: normal color and no rashes or lesions noted Wounds: no wounds Neuro: Speech: normal speech Motor exam (neuro): 5/5 motor strength present throughout Sensory Exam: normal sensation Other: A&O x4. No deficits on exam. Extrem: General: normal to inspection Psych: Mental Status: mental status grossly normal Affect: normal affect Other: Good insight and judgment, pleasant H&P: Results Labs Labs: Short CBC 05/05/24 Range/Units 09:43 WBC 9.5 (4.5-10.0) K/mm3 Hgb 13.9 (12.0-15.0) g/dL Hct 41.5 (37.0-47.0) % Plt Count 316 (150-375) k/mm3 BMP 05/05/24 09:43 Sodium 138 Potassium 3.9 Chloride 99 Carbon Dioxide 29 BUN 8 Creatinine 0.66 L Glucose 97 Calcium 9.5 Cardiac Enzymes 05/05/24 Range/Units 09:43 Troponin I < 0.012 (0.000-0.034) ng/mL Liver Function 05/05/24 Range/Units 09:43 Total Bilirubin 0.6 (0.2-1.3) mg/dL AST 37 H (14-36) U/L ALT 45 H (6-35) U/L Alkaline Phosphatase 98 (38-126) U/L Albumin 4.5 (3.5-5.1) g/dL Urine 05/05/24 Range/Units 10:22 Urine Color Yellow (Yellow) Urine Appearance Clear (Clear) Urine pH 6.5 (5.0-9.0) Ur Specific [employer] 1.027 (1.001-1.035) Urine Protein Negative (Negative) mg/dL Urine Glucose (UA) Negative (Negative) mg/dL Assessment and Plan Assessment and plan (1) Facial paresthesia: Code(s): R20.2 - Paresthesia of skin Status: Acute Assessment and Plan: New deficits of left sided paraesthesias discovered at 4:15 a.m. Last known well at 10:00 p.m. on 05/03. - admission for observation and telemetry - not candidate for thrombolytics due to timeframe - not candidate for thrombectomy, no LVO on CTA - CTA head/neck: 1. Small mild atherosclerotic plaque with 0% stenosis of the right and left carotid bulbs relative to normal distal artery lumen diameter (NASCET criteria). 2. Normal anatomic variant supply of the left anterior cerebral artery by the right internal carotid artery and a patent anterior communicating artery. Otherwise unremarkable cerebral CT angiogram with no hematoma significant stenosis, aneurysm or thrombosis. - neurology consulted - Angelo RICARDO, provided the following recs: symptoms raise concern for a right hemispheric lesion, check MRI check echo continue statin and antiplatelets possibility of the cervical spine etiology, however will re-evaluate post results of MRI/echo - MRI and echo (bubble) ordered - neuro checks Q4 - monitor daily labs, check lipid panel and A1C - start Atorvastatin 40 mg PO - start Plavix 75 mg PO - start ASA 81 mg - consider 30 day event monitoring at discharge (2) Paresthesia of left arm: Code(s): R20.2 - Paresthesia of skin Status: Acute Assessment and Plan: - see above, resolved Plan Diet: Regular GI Prophylaxis: Not currently indicated DVT Prophylaxis: SCDs Lines: Peripheral Code Status: Full code Quality VTE Prophylaxis VTE prophylaxis: mechanical ordered Hospitalist MIPS Advance Care Plan I have confirmed that the patient's Advanced Care Plan is present, code status is documented, or surrogate decision maker is listed in patient medical record.: Yes Medication Reconciliation I have utilized all available resources to obtain, update and review the patients current medications (includes all prescriptions, OTC, herbals, cannabis, and nutritional supplements).: Yes
--- NOTE | 2024-05-05 14:50 | ECHO_ITS ---
Patient Info Name: Radha Chow Age: 53 years : 1970 Gender: Female Ht: 61 in Wt: 211 lbs BSA: 2.08 m2 HR: 106 bpm BP: 134 / 67 mmHg Heart Rhythm: Sinus Rhythm Technical Quality: Fair Exam Date: 05/05/2024 3:21 PM Exam Location: Echo Lab Patient Status: Inpatient Admit Date: 05/05/2024 Staff Ordering Physician: Melita Carrillo APRN Comprehensive Ophthalmologist: Holly Miramontes RDCS Attending Provider: Yuri House MD Referring Physician: Gerardo MARIANO; Exam Type: CA echo dop bubble study w con Study Info Indications - CVA Complete two-dimentional, color flow and Doppler transthoracic echocardiogram is performed with agitated saline and with contrast to opacify the left ventricle and to improve the delineation of the left ventricle endocardial borders. Contrast/Agitated Saline Contrast/Ag. Saline: Agitated Saline Amount: 8.00 ml IV Access Condition: patent with no signs of infiltration Contrast/Ag. Saline: Definity Amount: 6.00 ml IV Access Condition: patent with no signs of infiltration Summary 1. Left ventricular chamber dimension is normal. 2. Left ventricular systolic function is normal, estimated at 60-65%. 3. There is mildly increased left ventricular wall thickness. 4. The left ventricular diastolic function is grade I diastolic dysfunction. 5. Right ventricular systolic function is normal. 6. Inconclusive bubble study due to poor quality bubble study. 7. There is mild tricuspid valve regurgitation. Left Ventricle Left ventricular chamber dimension is normal. Left ventricular systolic function is normal, estimated at 60-65%. There is mildly increased left ventricular wall thickness. The left ventricular diastolic function is grade I diastolic dysfunction. Right Ventricle Right ventricular chamber dimension is normal. Right ventricular systolic function is normal. Left Atria Left atrial chamber dimension is normal. Right Atria Right atrial chamber dimension is normal. Atrial Septum Inconclusive bubble study due to poor quality bubble study. Aortic Valve The aortic valve is not well visualized. There is no aortic valve stenosis. There is no aortic valve regurgitation. Pulmonic Valve The pulmonic valve is not well visualized. There is no pulmonic regurgitation. Mitral Valve There is trace mitral valve regurgitation. Tricuspid Valve There is mild tricuspid valve regurgitation. Pericardium/Pleural There is no pericardial effusion. Inferior Vena Cava Inferior vena cava is not well visualized. Aorta The aortic root size at the sinus of Valsalva is normal. Left Ventricular Outflow Tract Name Value Normal LVOT 2D LVOT Diameter 2.0 cm LVOT Doppler LVOT Peak Gradient 5 mmHg LVOT Mean Gradient 2 mmHg LVOT VTI 20 cm LVOT VTI/AV VTI Ratio 0.8 LVOT Stroke Volume 59 ml LVOT CO 12.9 l/min LVOT CI 6.2 l/min/m2 Pulmonic Valve Name Value Normal RVOT Doppler RVOT Peak Gradient 2 mmHg PV Doppler PV Peak Gradient 4 mmHg Mitral Valve Name Value Normal MV Doppler MV Decel [place] 328 cm/s2 MV PHT 63 ms MV Area (PHT) 3.5 cm2 4.0-5.0 MV Diastolic Function MV E Peak Velocity 71 cm/s MV A Peak Velocity 75 cm/s MV E/A 0.9 MV Decel Time 216 ms MV Annular TDI MV E/e' (Septal) 11.6 <=8.0 MV E/e' (Lateral) 8.0 <=8.0 MV E/e' (Average) 9.8 Aortic Valve Name Value Normal AV Doppler AV Peak Velocity 128 cm/s AV Peak Gradient 7 mmHg AV Mean Gradient 4 mmHg AV VTI 24 cm AV Area (Cont Eq VTI) 2.5 cm2 >=3.0 AV Area (Cont Eq Arpit) 2.7 cm2 AV Regurgitation 2D LVOT Area 3.0 cm2 Ventricles Name Value Normal LV Dimensions 2D/MM IVS Diastolic Thickness (2D) 0.9 cm 0.6-1.0 LVID Diastole (2D) 3.8 cm 3.8-5.2 LVIW Diastolic Thickness (2D) 1.0 cm 0.6-0.9 LVID Systole (2D) 2.6 cm 2.2-3.5 LVOT Diameter 2.0 cm LV Mass (2D Cubed) 111.84 g 67.00-162.00 LV Mass Index (2D Cubed) 54 g/m2 43-95 Relative Wall Thickness (2D) 0.53 LV Fractional Shortening/Ejection Fraction 2D/MM LV Fractional Shortening (2D) 31 % 27-45 LV EF (2D Teicholz) 59 % 54-74 LV Diastolic Volume (4C MOD) 108 ml LV EF (4C MOD) 60 % LV Diastolic Volume (2C MOD) 86 ml LV EF (2C MOD) 68 % LV Diastolic Volume (BP MOD) 102 ml 46-106 LV Diastolic Volume Index (BP MOD) 49 ml/m2 29-61 LV Systolic Volume (BP MOD) 37 ml 14-42 LV Systolic Volume Index (BP MOD) 18 ml/m2 8-24 LV EF (BP MOD) 63 % 54-74 LV Diastolic Length (4C) 9.2 cm LV Systolic Length (4C) 7.6 cm LV Stroke Volume (4C MOD) 64 ml Atria Name Value Normal LA Dimensions LA Volume (4C A-L) 56 ml RA Dimensions RA Area (4C) 14.5 cm2 <=18.0 Report Signatures
[2024-05-05] MEDS: PERFLUTREN LIPID MICROSPHERES 1.5 ML VIAL DILUTED TO 10 ML TOTAL VOLUME IV PUSH (16:20)
--- NOTE | 2024-05-05 16:36 | IVDEFINITY ---
Prior to administration of IV Definity the patient was educated on the risks and benefits of the imaging enhancing agent including potential adverse side effects. The patient verbalized understanding. Allergies were verified. No exclusion criteria were identified and at least one of the following inclusion criteria were met: 1) physician request, 2) patient technically difficult to image (per the [place] [employer]chocardi[employer] guidelines of two or more segments not discernable within the apical view), or 3) questionable left ventricular function. ?
[2024-05-05] MEDS: ACETAMINOPHEN 500 MG TABLET PO (18:51)
[2024-05-06] VITALS: PULSE 83
[2024-05-06 04:00] VITALS: PULSE 82
[2024-05-06 05:31] LABS: Basophils Absolute Auto 0.1 K/mm3 (0.0-0.1); Basophils Percent Auto 1.4 % (0.2-1.2); Eosinophils Absolute Auto 0.3 K/mm3 (0-0.3); Eosinophils Percent Auto 4.5 % (0-4.4); Hematocrit 39.1 % (37.0-47.0); Immature Granulocyte Absolute 0.02 K/mm3 (0.00-0.031); Immature Granulocyte Percent A 0.3 % (0-0.5); Lymphocytes Percent Auto 31.8 % (18.3-44.2); Mean Corpuscular HGB Conc 33.2 g/dl (32-36); Mean Corpuscular Hemoglobin 28.6 pg (26-34); Mean Corpuscular Volume 86.1 fl (80-100); Mean Platelet Volume 10.6 fl (7.4-10.4); Monocytes Percent Auto 15.7 % (2.6-8.5); Neutrophils Absolute Auto 2.9 K/mm3 (1.3-6.7); Neutrophils Percent Auto 46.3 % (45.5-73.1); Platelet Count Result 289 k/mm3 (150-375); Red Blood Count 4.54 M/mm3 (4.2-5.4); Red Cell Distribution Width 13.1 % (11.5-14.5); White Blood Count 6.3 K/mm3 (4.5-10.0)
[2024-05-06 05:38] LABS: Alanine Aminotransferase 40 U/L (6-35); Alkaline Phosphatase 94 U/L (38-126); Anion Gap 9 mmol/L (4-12); Aspartate Amino Transferase 34 U/L (14-36); Bilirubin,Total 0.3 mg/dL (0.2-1.3); Blood Urea Nitrogen 9 mg/dL (7-17); Calcium 9.2 mg/dL (8.4-10.2); Carbon Dioxide 27 mmol/L (22-30); Chloride 103 mmol/L (98-107); Cholesterol 167 mg/dL (0-200); Estimated CRCL calculation 95 ml/min; Estimated Glomerular Filt Rate > 60; Glucose 108 mg/dL (65-110); HDL Direct 48 mg/dL; Potassium 3.7 mmol/L (3.4-5.0); Sodium 139 mmol/L (137-145); Triglycerides 77 mg/dL (<150)
[2024-05-06 05:43] VITALS: BP 107/65; PULSE 78; RESP 16; TEMP 36.4; O2SAT 99
[2024-05-06 05:47] LABS: Hemoglobin A1C 5.1 % (<5.7)
[2024-05-06 05:49] LABS: LDL Cholesterol Direct 90 mg/dL
[2024-05-06 08:00] VITALS: PULSE 79
[2024-05-06] MEDS: ASPIRIN 81 MG CHEWABLE TABLET PO (08:55)
[2024-05-06] MEDS: ATORVASTATIN 40 MG TABLET PO (08:55)
[2024-05-06] MEDS: CLOPIDOGREL BISULFATE 75 MG TABLET PO (08:55)
--- NOTE | 2024-05-06 09:51 | P.PNIM_ITS ---
Progress Note: A&P Assessment and Plan (1) Facial paresthesia: Code(s): R20.2 - Paresthesia of skin Status: Acute Assessment and Plan: New deficits of left sided paraesthesias discovered at 4:15 a.m. Last known well at 10:00 p.m. on 05/03. - admission for observation and telemetry - not candidate for thrombolytics due to timeframe - not candidate for thrombectomy, no LVO on CTA - CTA head/neck: 1. Small mild atherosclerotic plaque with 0% stenosis of the right and left carotid bulbs relative to normal distal artery lumen diameter (NASCET criteria). 2. Normal anatomic variant supply of the left anterior cerebral artery by the right internal carotid artery and a patent anterior communicating artery. Otherwise unremarkable cerebral CT angiogram with no hematoma significant stenosis, aneurysm or thrombosis. - neurology consulted - Angelo RICARDO, provided the following recs: symptoms raise concern for a right hemispheric lesion, check MRI check echo continue statin and antiplatelets possibility of the cervical spine etiology, however will re-evaluate post results of MRI/echo - MRI and echo (bubble) ordered - neuro checks Q4 - monitor daily labs, check lipid panel and A1C - start Atorvastatin 40 mg PO - start Plavix 75 mg PO - start ASA 81 mg - neurology consulted (2) Paresthesia of left arm: Code(s): R20.2 - Paresthesia of skin Status: Acute Assessment and Plan: - see above, resolved Plan Diet: Regular GI Prophylaxis: Not currently indicated DVT Prophylaxis: SCDs Lines: Peripheral Code Status: Full code Time Spent With Patient Time with patient: 25 - 35 minutes Subjective Date/time seen: 05/06/24 09:51 Interval history: 53 year old female with no significant past medical history presents here for further evaluation of left-sided numbness. The patient presents here from home for further evaluation of left-sided tingling that is affecting her left arm and left face. She reports she went to bed at 10:00 p.m. in her normal state of health. She woke up around 4:00 a.m. and discovered she had the left-sided tingling sensation around 4:15 a.m. She initially dismissed these symptoms, however they persisted after she went to work prompting her to seek care. Since discovery, the facial tingling has resolved. She reports persistent tingling to her left upper extremity. She states these areas are more like paresthesias versus numbness. She denies ac companying focal weakness, changes in speech, changes in balance, gait disturbance, blurred vision, dizziness, or headache. She has no previous significant neurological history or history of stroke. She is a current everyday smoker. She reports this evening that the paresthesias to her face have also resolved, she is unsure what time. Chest xray- negative. Head/neck CTA showed small mild atherosclerotic plaque with 0% stenosis of the right and left carotid bulbs relative to normal distal artery lumen diameter (NASCET criteria) and normal anatomic variant supply of the left anterior cerebral artery by the right internal carotid artery and a patent anterior communicating artery. EKG showed NSR, rate 90, low QRS voltage in precordial leads. Pt is seen and examined.Her symptoms are gone, no more tingling or numbness. Labs work collected-pending. MRI is today Review of Systems Review of Systems: All systems reviewed & are unremarkable except as noted in HPI and below Exam Narrative: normal exam. Const: General: comfortable Other: , female, nontoxic appearance HENMT: Face/Nose/Sinus: Normal nares present Mouth: Yes moist mucous membranes Eyes: General: appearance normal, both eyes and all related structures Sclera: sclerae normal Pupils: Equal, round and reactive pupils present EOM: EOMs intact bilaterally Resp: Effort & Inspection: normal respiratory effort Auscultation: clear to auscultation bilaterally Cardio: Rate: regular rate Rhythm: regular rhythm Other: S1-S2 present without murmur, rub, ectopy GI: Other: Abdomen soft, nondistended, nontender. Normoactive bowel sounds in all quadrants. Skin: General skin exam: normal color and no rashes or lesions noted Wounds: no wounds Neuro: Cranial nerves: Yes Equal, round and reactive pupils present Speech: normal speech Motor exam (neuro): 5/5 motor strength present throughout Sensory Exam: normal sensation Other: A&O x4. No deficits on exam. Extrem: General: normal to inspection Psych: Mental Status: mental status grossly normal Affect: normal affect Other: Good insight and judgment, pleasant Objective Data Vital Signs Vital Signs: Vital Signs - 24 hr 05/05/24 11:18 05/05/24 11:53 05/05/24 12:25 Temperature Pulse Rate 100 108 H 98 Respiratory Rate 19 18 18 Blood Pressure 145/114 H 145/63 H 144/57 H Pulse Oximetry 95 95 97 Oxygen Delivery 05/05/24 12:45 05/05/24 13:00 05/05/24 16:00 Temperature 97.1 F L Pulse Rate 106 H 100 100 Respiratory Rate 16 16 Blood Pressure 134/67 Pulse Oximetry 95 95 Oxygen Delivery Room Air 05/05/24 20:00 05/05/24 20:45 05/06/24 00:00 Temperature 97.8 F Pulse Rate 99 87 83 Respiratory Rate 20 Blood Pressure 113/47 L Pulse Oximetry 96 Oxygen Delivery 05/06/24 04:00 05/06/24 05:43 Temperature 97.5 F L Pulse Rate 82 78 Respiratory Rate 16 Blood Pressure 107/65 Pulse Oximetry 99 Oxygen Delivery Intake/Output Intake/Output: Intake & Output 05/03/24 05/04/24 05/05/24 05/06/24 23:59 23:59 23:59 23:59 Intake Total 557 300 Balance 557 300 Meds/Results Medications: Active Medications Generic Name Dose Route Start Last Admin Trade Name Freq PRN Reason Stop Dose Admin Acetaminophen 500 mg 05/05/24 14:53 05/05/24 18:51 Acetaminophen 500 Mg Tablet PO 500 mg Q6H PRN Administration fever or pain Aspirin 81 mg 05/06/24 08:00 05/06/24 08:55 Aspirin 81 Mg Chewable Tablet PO 81 mg DAILY@0800 KEATON Administration Atorvastatin Calcium 40 mg 05/06/24 09:00 05/06/24 08:55 Atorvastatin 40 Mg Tablet PO 40 mg DAILY KEATON Administration Clopidogrel Bisulfate 75 mg 05/06/24 09:00 05/06/24 08:55 Clopidogrel Bisulfate 75 Mg Tablet PO 75 mg QAM KEATON Administration Dextrose 12.5 gm 05/05/24 11:28 Dextrose 50% 25 Gm/50 Ml Syringe IV PUSH PRN PRN Hypoglycemia Protocol Glucagon 1 mg 05/05/24 11:28 Glucagon For Inj 1 Mg Vial IM PRN PRN Hypoglycemia Protocol Glucose 15 gm 05/05/24 11:28 Glucose Oral Gel 15 Gm Of Glucse In 37.5 Gm Tube PO PRN PRN Hypoglycemia Protocol Dextrose 1,000 mls @ 100 mls/hr 05/05/24 11:28 Dextrose 5% 1,000 Ml IVPB PRN PRN Hypoglycemia Protocol Radiology Results: ITS Impressions Head CT 05/05/24 09:40 IMPRESSION: 1. Normal for age head CT. Chest X-Ray 05/05/24 09:45 IMPRESSION: 1. No acute cardiopulmonary disease. Head/Neck CTA 05/05/24 10:20 IMPRESSION: 1. Small mild atherosclerotic plaque with 0% stenosis of the right and left carotid bulbs relative to normal distal artery lumen diameter (NASCET criteria). 2. Normal anatomic variant supply of the left anterior cerebral artery by the right internal carotid artery and a patent anterior communicating artery. Otherwise unremarkable cerebral CT angiogram with no hematoma significant stenosis, aneurysm or thrombosis. Labs Labs: Laboratory Results - last 24 hr 05/05/24 05/05/24 05/06/24 09:43 10:22 04:51 WBC 9.5 6.3 RBC 4.81 4.54 Hgb 13.9 13.0 Hct 41.5 39.1 MCV 86.3 86.1 MCH 28.9 28.6 MCHC 33.5 33.2 RDW 13.1 13.1 Plt Count 316 289 MPV 10.6 H 10.6 H Immature Gran % (Auto) 0.4 0.3 Neut % (Auto) 66.8 46.3 Lymph % (Auto) 20.2 31.8 Grand % (Auto) 9.7 H 15.7 H Eos % (Auto) 1.9 4.5 H Baso % (Auto) 1.0 1.4 H Lymph # (Auto) 1.91 2.00 Grand # (Auto) 0.9 H 1.0 H Eos # (Auto) 0.2 0.3 Baso # (Auto) 0.1 0.1 Abs Immat Gran (auto) 0.04 H 0.02 Absolute Neuts (auto) 6.3 2.9 Absolute Nucleated RBC 0.000 0.000 Nucleated RBC % 0.0 0.0 PT 13.4 INR 1.0 APTT 29.7 Sodium 138 139 Potassium 3.9 3.7 Chloride 99 103 Carbon Dioxide 29 27 Anion Gap 10 9 BUN 8 9 Creatinine 0.66 L 0.66 L Estim Creat Clear Calc 95 95 Estimated GFR > 60 > 60 Glucose 97 108 Hemoglobin A1c 5.1 Calcium 9.5 9.2 Magnesium 2.1 Total Bilirubin 0.6 0.3 AST 37 H 34 ALT 45 H 40 H Alkaline Phosphatase 98 94 Troponin I < 0.012 Total Protein 8.0 7.0 Albumin 4.5 4.0 Triglycerides 77 Cholesterol 167 LDL Cholesterol Direct 90 HDL Direct 48 Urine Color Yellow Urine Appearance Clear Urine pH 6.5 Ur Specific Celina 1.027 Urine Protein Negative Urine Glucose (UA) Negative Urine Ketones Negative Ur Blood (Man) Negative Urine Nitrate Negative Urine Bilirubin Negative Urine Urobilinogen 0.2 Leukocyte Esterase Rfl Negative Quality VTE Prophylaxis VTE prophylaxis: mechanical ordered
[2024-05-06] MEDS: LORazepam INJ (*CRX) 2 MG/ML VIAL 0.5 MG IV PUSH (12:14)
[2024-05-06 14:00] VITALS: BP 119/63; PULSE 100; RESP 16; TEMP 35.7; O2SAT 98
--- NOTE | 2024-05-06 14:34 | PM.DS ---
DS: Admitting Diagnosis Discharge Date 05/06 Admitting Diagnosis lt arm, facial numbness DS: Discharge Diagnosis Discharge Diagnosis (1) Facial paresthesia: Code(s): R20.2 - Paresthesia of skin Status: Acute (2) Paresthesia of left arm: Code(s): R20.2 - Paresthesia of skin Status: Acute DS: Summary Hospital Course Hospital Course: 53 year old female with no significant past medical history presents here for further evaluation of left-sided numbness. The patient presents here from home for further evaluation of left-sided tingling that is affecting her left arm and left face. She reports she went to bed at 10:00 p.m. in her normal state of health. She woke up around 4:00 a.m. and discovered she had the left-sided tingling sensation around 4:15 a.m. She initially dismissed these symptoms, however they persisted after she went to work prompting her to seek care. She denies focal weakness, changes in speech, changes in balance, gait disturbance, blurred vision, dizziness, or headache. She has no previous significant neurological history or history of stroke. She is a current everyday smoker. She reports this evening that the paresthesias to her face have also resolved. At the tiem of my eval in am- all symptoms were gone. She was waiting to do MRI and if unremarkable- wants to go home with a close f/u with neurology. New deficits of left sided paraesthesias discovered at 4:15 a.m. Last known well at 10:00 p.m. on 05/03. - admission for observation and telemetry - not candidate for thrombolytics due to timeframe - not candidate for thrombectomy, no LVO on CTA - CTA head/neck: 1. Small mild atherosclerotic plaque with 0% stenosis of the right and left carotid bulbs relative to normal distal artery lumen diameter (NASCET criteria). 2. Normal anatomic variant supply of the left anterior cerebral artery by the right internal carotid artery and a patent anterior communicating artery. Otherwise unremarkable cerebral CT angiogram with no hematoma significant stenosis, aneurysm or thrombosis. - neurology consulted - Angelo RICARDO, provided the following recs: symptoms raise concern for a right hemispheric lesion, check MRI check echo continue statin and antiplatelets possibility of the cervical spine etiology, however will re-evaluate post results of MRI/echo - MRI and echo (bubble) ordered - neuro checks Q4 - monitor daily labs, check lipid panel and A1C - start Atorvastatin 40 mg PO - start Plavix 75 mg PO - start ASA 81 mg - neurology consulted: the numbness in the face and left upper limb will raise possibility of right hemispheric lesion and hence an MRI of the brain is recommended. Echocardiogram should also be done. The meanwhile we can keep her on antiplatelets and statins. I discussed this with the [facility] an emergency room. I also explained that sometimes the symptoms can occur from cervical spine however this needs to be carefully analyzed after we evaluate the results of her investigations. Her mother had myocardial infarction in her 60s. Other than that there is no other significant risk factor identified ECHO was done: Summary 1. Left ventricular chamber dimension is normal. 2. Left ventricular systolic function is normal, estimated at 60-65%. 3. There is mildly increased left ventricular wall thickness. 4. The left ventricular diastolic function is grade I diastolic dysfunction. 5. Right ventricular systolic function is normal. 6. Inconclusive bubble study due to poor quality bubble study. 7. There is mild tricuspid valve regurgitation. Brain MRI: NOrmal aging brain. Time spent discussing smoking cessation with patient: more than 10 minutes Status at Discharge Functional status at discharge: independent ambulation Overall status at discharge: patient is back to baseline Time Spent with Patient Time attestation: Total time spent providing and/or coordinating discharge services: Time spent: Less than 30 minutes Exam Narrative: normal exam. Const: General: comfortable and no acute distress Other: , female, nontoxic appearance HENMT: Face/Nose/Sinus: Normal nares present Mouth: Yes moist mucous membranes Eyes: General: appearance normal, both eyes and all related structures Sclera: sclerae normal Pupils: Equal, round and reactive pupils present EOM: EOMs intact bilaterally Resp: Effort & Inspection: normal respiratory effort Auscultation: clear to auscultation bilaterally Cardio: Rate: regular rate Rhythm: regular rhythm Other: S1-S2 present without murmur, rub, ectopy GI: Other: Abdomen soft, nondistended, nontender. Normoactive bowel sounds in all quadrants. Skin: General skin exam: normal color and no rashes or lesions noted Wounds: no wounds Neuro: Cranial nerves: Yes Equal, round and reactive pupils present Speech: normal speech Motor exam (neuro): 5/5 motor strength present throughout Sensory Exam: normal sensation Other: A&O x4. No deficits on exam. Extrem: General: normal to inspection Psych: Mental Status: mental status grossly normal Affect: normal affect Other: Good insight and judgment, pleasant DS: Data Data Completed and Pending Labs on day of discharge: Labs from last 24 hours 05/06/24 04:51 WBC 6.3 RBC 4.54 Hgb 13.0 Hct 39.1 MCV 86.1 MCH 28.6 MCHC 33.2 RDW 13.1 Plt Count 289 MPV 10.6 H Immature Gran % (Auto) 0.3 Neut % (Auto) 46.3 Lymph % (Auto) 31.8 Woodruff % (Auto) 15.7 H Eos % (Auto) 4.5 H Baso % (Auto) 1.4 H Lymph # (Auto) 2.00 [place]ruff # (Auto) 1.0 H Eos # (Auto) 0.3 Baso # (Auto) 0.1 Abs Immat Gran (auto) 0.02 Absolute Neuts (auto) 2.9 Absolute Nucleated RBC 0.000 Nucleated RBC % 0.0 Sodium 139 Potassium 3.7 Chloride 103 Carbon Dioxide 27 Anion Gap 9 BUN 9 Creatinine 0.66 L Estim Creat Clear Calc 95 Estimated GFR > 60 Glucose 108 Hemoglobin A1c 5.1 Calcium 9.2 Total Bilirubin 0.3 AST 34 ALT 40 H Alkaline Phosphatase 94 Total Protein 7.0 Albumin 4.0 Triglycerides 77 Cholesterol 167 LDL Cholesterol Direct 90 HDL Direct 48 Discharge Plan Discharge Attending physician on discharge: Erick Navarro Consulting providers: Nazia Poole Discharging Clinician: Alayna Ramon Patient Disposition: Home, Self-Care Activity: june shower Diet: heart healthy Discharge Instructions: CT and MRI were negative. You were eval by neurologist and all of your symptoms resolved. However, as instructed per DR Poole, please take asa, plavix and cholesterol medication (all will be sent to your pharmacy) and f/u with neurology in 4 weeks or sooner. If any symptoms return, please come back to ED. Please work hard on quitting smoking as it automatically puts you at risk for stroke and heart . Avoid advil or ibuprofen (NSAID) while taking asa and plavix. Tylenol is ok to take if needed. Patient Instructions: Antibiotic Form Patient Language: [place] Stand Alone Forms: General Discharge Information Follow-up/Referrals: Nazia Poole MD [Physician] - 4 Weeks PHYSICIAN NOT ON STAFF,NONSTAFF [Primary Care Provider] - 2 Weeks Discharge Medications: New atorvastatin 40 mg Tablet 40 mg PO DAILY Qty: 90 0RF clopidogrel 75 mg Tablet 75 mg PO QAM Qty: 90 0RF aspirin [Children's Aspirin] 81 mg Tablet,Chewable 81 mg PO DAILY@0800 Qty: 90 0RF Continued acetaminophen 500 mg capsule 500 mg PO Q6H PRN (Reason: fever or pain) Qty: 30 0RF Discontinued ibuprofen 600 mg tablet 600 mg PO TID PRN (Reason: pain) Qty: 14 0RF Date of admission: 05/05/24 11:28 Primary Care Provider: PHYSICIAN NOT ON STAFF,NONSTAFF Admitting Provider: Yuri House Attending physician on admission: Yuri House Condition: Stable Quality VTE Prophylaxis VTE prophylaxis: mechanical ordered Hospitalist MIPS Heart Failure (Exclusion) Patient has history of Heart Transplant or Left Ventricular Assistive Device?: No IF YES, STOP HERE Heart Failure (Qualifier) Patient has current or prior documentation of LVEF less than or equal to 40%, or mod/servere depressed LVSF?: No IF NO, STOP HERE
== END 2024-05-06 15:30 | disposition home or self-care (01) ==
LOC: ANHED 11:57 → ANH3MEDSUR 12:08
PROVIDERS: Student in an Organized Health Care Education/Training Program; Admitting Provider Internal Medicine; Emergency Provider Physician Assistant; Visit Provider Nurse Practitioner
DX: R20.2 Paresthesia of skin (principal); F17.210 Nicotine dependence, cigarettes, uncomplicated; M54.2 Cervicalgia; G89.29 Other chronic pain; Z79.899 Other long term (current) drug therapy; Z82.49 Family history of ischemic heart disease and other diseases of the circulatory system
CPT/HCPCS: 36415; 70450; 70496; 70498; 70553; 71045; 80053; 80061; 81003; 82948; 83036; 83735; 84484; 85025; 85610; 85730; 93005; 96374; 96375; 99285; A9270; A9579; C8929; G0378; J2060; Q9957; Q9967

== ENCOUNTER 2024-09-05 14:11 | Emergency (ER) | payer OTHER, SELFPAY ==
--- NOTE | ~2024-09-05 | XR_ITS ---
XR ankle RT min 3V 09/05/2024 15:34 INDICATION: Right ankle pain PROCEDURE: 4 views right ankle COMPARISON: No prior studies for comparison. FINDINGS: Fracture, dislocation or subluxation is not identified. The soft tissues appear within norm al limits. No foreign bodies are identified. IMPRESSION: 1: NO ACUTE BONE OR JOINT ABNORMALITY IDENTIFIED. Reviewed, dictated and finalized at location B.
--- NOTE | ~2024-09-05 | US_ITS ---
EXAMINATION:US venous doppler LE RT INDICATION:Right lower extremity pain and swelling TECHNIQUE: Multiple grayscale, color flow and Doppler images of the right lower extremity deep venous systems were obtained and reviewed. COMPARISON:No prior studies for comparison. FINDINGS: The common femoral, superficial femoral and popliteal veins demonstrate normal respiratory variation, augmentation and compressibility. Color flow is also seen within the posterior tibial, pe roneal, greater saphenous and profunda veins. IMPRESSION: 1: No lower extremity deep venous thrombosis. Reviewed, dictated and finalized at location B.
--- OUTSIDE RECORDS SUMMARY | 2024-09-05 14:13 | XMS_ITS | Encounter Summary ---
Author Organization [facility] Address [facility] [place] [address] Care Team Providers Care Cardiology Technologist Name Role Phone Lisa Ball MD Primary Care Provider + Reason for Referral * Imaging (Routine) - New Request Specialty Diagnoses / Procedures Referred By Contkalie t Referred To Contact RADIOLOGY Diagnoses Abnormal mammogram Procedures BREAST LT Pigafe Lisa Ball MD [address] [place] [phone] Phone: tel: fax: Referral ID Status Reason Start Date Expiration Date V isits Requested Visits Authorized [id number] New Request 07/07/2024 07/07/2025 1 1 Encounter Details Date Type Department Care Team (Late st Contact Info) Description 07/07/2024 Results Follow-Up [facility] Mammography [address] [place] [address] Lisa Ball MD [address] [place] [id number] MG NESSAG W BLAZE LT DIGI, US BREAST LT [employer] Social History Tobacco Use Types Packs/Day Years Used Date Smoking Tobacco: Former Cigarettes 0.3 43 1 - 2023 Passive Smoke Exposure: Never Smokeless Tobacco: Never Comments:Smokes one cigarett e every few weeks. Still vapes. Alcohol Use Standard Drinks/Week Comments No 0 (1 standard drink = 0.6 oz pur e alcohol) sober 16 years PHQ-2 Answer Date Recorded Patient Health Questionnaire-2 Score 0 05/20/2024 Comments No Sex and Gender Information Value Date Recorded Sex Assigned at Female 05/02/2024 4:05 PM CDT Legal Sex Female 7:34 PM CDT Gender Identity Female 05/02/2024 4:05 PM CDT Sexual Orientation Not on file Occupation Industry Job Start Date Job End Date [employer] [facility] Not on file Not o n file Not on file documented as of this encounter Plan of Treatment Upcoming Encounters Date Type Department Care Team (Late st Contact Info) Description 05/08/2025 2:40 PM CDT Office Visit [facility] Family [facility] [address] [place] [address] [phone] Lisa Ball MD [address] [place] [address] [phone] Scheduled Orders Name Type Priority Associated Diagnoses Orde r Schedule US BREAST LT BIRAD LTD Ultrasound Routine Abnormal mammogram Expected: 01/07/2025, Expires: 07/07/2025 MG DIAGNOSTIC LT DIGI MAMMO Routine Abnormal mammogram Expected: 01/07/2025, Expires: 09/06/2025 documented as of this encounter Visit Diagnoses Diagnosis Abnormal mammogram- Primary Abnormal mammogram, unspecified documented in this encounter Care Teams Cardiology Technologist Relationship Specialty Start Date End Date Lisa Ball MD [address] [place] [address] [phone] PCP - General FAMILY PRACTICE 05/03/24 documented as of this encounter
--- OUTSIDE RECORDS SUMMARY | 2024-09-05 14:13 | XMS_ITS | Clinical Summary ---
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 Not on file Not on file Obstetrics History Last Filed Vital Signs Vital Sign Reading Time Taken Comments Blood Pressure - - Pulse - - Temperature - - Respiratory Rate - - Oxygen Saturation - - Inhaled Oxygen Concentration - - Weight 86.2 kg (190 lb) 01/12/2023 1:16 PM BACK WEDGER Height 157.5 cm (5' 2) 01/12/2023 1:16 PM BACK WEDGER Body Mass Index 34.75 01/12/2023 1:16 PM BACK WEDGER Plan of Treatment Health Maintenance Due Date [...] - season) 2023, 12/04/2020 Influenza Vaccine (#1) 2024 Insurance [facility] PL[facility] CHOICE PLUS Care Teams Echocardiographer Relationship Specialty Start Date End Date No, Physician PCP - General 05/05/24 Carlos Yee MD Emergency Medicine 05/05/24
--- OUTSIDE RECORDS SUMMARY | 2024-09-05 14:13 | XMS_ITS | Encounter Summary ---
Author Organization [facility] Address [facility] [place] [address] Care Team Providers Care Global Compensation Analyst Name Role Phone Lisa Ball MD Primary Care Provider + Encounter Details Date Type Department Care Team (Late Contact Info) Description 05/30/2024 [employer] Message Enc [facility] [address] [facility] [address] [place] [phone] Lisa Ball MD [address] [place] [address] [phone] Stomach pains Social History Tobacco Use Types Packs/Day Years Used Date Smoking Tobacco: Some Days Cigarettes Passive Smoke Exposure: Never Smokeless Tobacco: Never [...] Industry Job Start Date Job End Date [employer] [employer] Not on file Not o n file Not on file documented as of this encounter Plan of Treatment Upcoming Encounters Date Type Department Care Team (Late Contact Info) Description 05/08/2025 2:40 PM CDT Office Visit [facility] [address] [place] [address] Lisa Ball MD [address] [place] [address] documented as of this encounter Visit Diagnoses Not on filedocumented in this encounter Care Teams Global Compensation Analyst Relationship Specialty Start Date End Date Lisa Ball MD [address] [place] [address] PCP - General FAMILY PRACTICE 05/03/24 documented as of this encounter
--- OUTSIDE RECORDS SUMMARY | 2024-09-05 14:14 | XMS_ITS | Clinical Summary ---
Author Organization [facility] Address [address] [place] [address] Care Team Providers Care Wood Heel Flap Trimmer Name Role Phone Lisa Dietz MD Primary Care Provider + Allergies Active Allergy Reactions Criticality Noted Date Comments Acetaminophen-Codeine Chest pressure Medium 01/12/2023 Medications CHROMIUM OR Take 2 tablets by mouth daily. Active ciclopirox (LOPROX) 0.77 % creamIndicatio ns:Onychomycos is Apply topically 2 (two) times daily. Apply to affected nails 30 g 3 05/04/19 25 Active aspirin 81 MG chewable tablet 1 tablet (81 mg total). 05/07/19 25 Active atorvastatin (LIPITOR) 40 MG tablet Take 1 tablet (40 mg total) by mouth daily. 05/09/19 25 Active clopidogrel (PLAVIX) 75 MG tablet Take 1 tablet (75 mg total) by mouth every morning. 05/09/19 25 Active cyclobenzaprin e (FLEXERIL) 10 MG tabletIndicati ons:Acute bilateral low back pain without sciatica TAKE 1 TABLET(10 MG) BY MOUTH EVERY NIGHT AT BEDTIME 30 tablet 08/16/19 25 Active cyclobenzaprin e (FLEXERIL) 10 MG tabletIndicati ons:Acute bilateral low back pain without sciatica Take 1 tablet (10 mg total) by mouth nightly at bedtime for 30 days. 30 tablet 07/08/19 25 025 Discontinued Active Problems Problem Noted Date Diagnosed Date Elevated liver enzymes 05/23/2024 Facial paresthesia 05/20/2024 Overview (05/20/2024): See notes 05/2024. Morbid obesity 05/03/2024 Assessment & Plan (05/03/2024 3:19 PM CDT): Encouraged lifestyle changes. Onychomycosis 05/03/2024 Chronic bilateral low back pain without sciatica 07/29/2016 Encounters Date Type Department Care Team Description 07/07/2024 9:50 AM CDT Office Visit [facility] Family Medicine - [place] [address] [facility] [address] [place] [address] Lisa Dietz MD Foot Pain (Right foot pain. No injury. Feels like the bottom of her foot is tight and hurts to walk. Pain radiates up foot to leg. Onset- 2 wks. ) 07/07/2024 6:36 AM CDT - 07/07/2024 11:59 PM CDT Hospital Encounter [facility] [address] Lisa Dietz MD Discharge Disposition: Home or Self Care (Routine Discharge) 07/07/2024 Scan MG HEALTH INFO SRVCS Scanned, [facility] 07/07/2024 Results Follow-Up [facility] [address] Lisa Dietz MD MG DIAG W BLAZE LT DIGI, BREAST LT BIRAD LTD 07/07/2024 Travel from Last 3 Months Immunizations Immunization Administration Dates Next Due Hepatitis A (Havrix [address]) 11/25/2001 Shingrix 05/03/2024 Tdap (Adacel) 05/03/2024 Family History Medical History Relation Comments No Known Problems Brother No Known Problems Daughter Diabetes Father Breast Cancer Maternal Grandmother age over 50 Arthritis Mother Diabetes Mother Heart Attack Mother Heart Disease Mother Macular Degeneration Mother Retinal Detachment Sister 1 No Known Problems Sister 2 No Known Problems Sister 3 No Known Problems Sister 4 Diabetes type I Son 1 No Known Problems Son 2 Relation Status Comments Brother Alive Daughter Alive Father Maternal Grandmother Alive Mother Sister 1 Alive Sister 2 Alive Sister 3 Alive Sister 4 Alive Son 1 Alive Son 2 Alive Social History Tobacco Use Types Packs/Day Years Used Date Smoking Tobacco: Former Cigarettes 0.3 43 1 1 - 2023 Passive Smoke Exposure: Never Smokeless Tobacco: Never Tobacco Cessation:Counseling Given: No Comments:Smokes one cigarette every few weeks. Still [...] Industry Job Start Date Job End Date [employer] Not on file Not o n file Not on file Last Filed Vital Signs Vital Sign Reading Time Taken Comments Blood Pressure 130/88 07/07/2024 9:51 AM CDT Pulse 91 07/07/2024 9:51 AM CDT Temperature 36.7 C (98 F) 07/07/2024 9:51 AM CDT Respiratory Rate 16 09/23/2018 11:58 AM CDT Oxygen Saturation 98% 07/07/2024 9:51 AM CDT Inhaled Oxygen Concentration - - Weight 92.7 kg (204 lb 6.4 oz) 07/07/2024 9:51 A M CDT Height 160 cm (5' 3) 07/07/2024 9:51 AM CDT Body Mass Index 36.21 07/07/2024 9:51 AM CDT Plan of Treatment Upcoming Encounters Date Type Department Care Team (Late st Contact Info) Description 05/08/2025 2:40 PM CDT Office Visit [facility] Family Medicine - [place] [address] [place] [address] [phone] Lisa Dietz MD [address] [place], [place] [phone] Health Maintenance Due Date Last Done Comments Hepatitis C 1990 Hepatitis B Vaccines (1 of 3 - 19+ 3-dose series) 06/13/1991 Pneumococcal Vaccine: 50+ Years (1 of 1 - PCV) 2022 COVID-19 Vaccine (3 - 2023-2 5 season) 2023 12/25/2020, 12/04/2020 Zoster Vaccines (2 of 2) 06/28/2024 05/03/2024 Annual Physical 05/03/2025 05/03/2024 Mammogram Screening 07/07/2026 07/07/2024, 06/02/2024 Colorectal Cancer Screening FIT-DNA (3 Years) 05/09/2027 05/08/2024, 05/08/2024 Cervical Cancer Screening Pa p Smear (Age 30 to 64) Every 3 Years 05/21/2027 05/20/2024 Cervical Cancer Screening Pa p with HPV Testing (Age 30 to 64) Every 5 Years 05/20/2029 05/20/2024 Cervical Cancer Screening wi th HPV 05/20/2029 DTaP, Tdap and Td Vaccines ( 2 - Td or Tdap) 05/03/2034 05/03/2024 PHQ-2 (Physician [place]) Completed 05/20/2024 Meningococcal B Vaccine Aged Out No l onger eligible based on patient's age to complete this topic Meningococcal Vaccine Aged Out No yeison michelle eligible based on patient's age to complete this topic RSV Immunizations Under 20 Months Aged Out No longer eligible b ased on patient's age to complete this topic Procedures Procedure Name Priority Date/Time Associated Diagnosis Comments US BREAST LT eMazeMeAD LTD Routine 07/07/2024 8:04 AM CDT Abnormal mammogram MG DIAG W BLAZE LT DIGI Routine 07/07/2024 7:19 AM CDT Abnormal mammogram CYTOPATH CERV/VAG THIN LAYER Routine 05/20/2024 9:00 AM CDT HUMAN PAPILLOMAVIRUS, HIGH-RISK TYPES Routine 05/20/2024 8:00 AM CDT COLOGUARD (EXACT SCIENCE) Routine 05/08/2024 9:17 AM CDT Colon cancer screening from Last 3 Months or Most Recently Relevant to Health Maintenance Results * US BREAST LT BIRAD LTD (07/07/2024 8:04 AM CDT) Anatomical Region Laterality Modality Breast Left Ultrasound 07/07/2024 9:18 AM CDT Impressions 07/07/2024 9:46 AM CDT =====IMPRESSION:===== Probably benign cyst in the left breast 7:00 sector. Follow-up left diagnostic mammogram and ultrasound are recommended in 6 months. ASSESSMENT: ACR BI-RADS 3 - PROBABLY BENIGN FINDING(S) - SHORT INTERVAL FOLLOW- UP SUGGESTED Recommendation: 1: Short interval follow-up in 6 months. Left Ordered By: LISA DIETZ Interpreted By: Rodger Nathan MD, 07/07/2024 9:18 AM Narrative 07/07/2024 9:46 AM CDT [facility] [address] [place] [address] EXAMINATION: Digital left diagnostic mammogram with 3-D tomography; left breast ultrasound [id number] EXAM DATE/TIME: 07/07/2024 7:06 AM REASON FOR EXAM: Callback from screening for left focal asymmetry COMPARISON: 06/02/2024 TECHNIQUE: Digital diagnostic mammography of the left breast was performed in addition to 3-D Tomosynthesis technique. This study was read with the assistance of a computer-aided detection system. Left breast ultrasound was performed. TISSUE DENSITY: There are scattered areas of fibroglandular density. FINDINGS: Mammogram findings: Additional views confirm a small circumscribed mass of the left breast lower inner quadrant, middle depth. This is slightly reniform shape and well-defined. This is further evaluated with ultrasound. Ultrasound findings: Targeted left breast ultrasound reveals a small complex cyst in the 7:00 sector, 5 cm from the nipple measuring 5 mm in greatest diameter. This probably benign and follow-up is recommended. Procedure Note Rodger Nathan MD - 07/07/2024 [facility] [address] [place] [address] EXAMINATION: Digital left diagnostic mammogram with 3-D tomography; leftbreast ultrasound [id number] EXAM DATE/TIME: 07/07/2024 7:06 AM REASON FOR EXAM: Callback from screening for left focal asymmetry COMPARISON: 06/02/2024 TECHNIQUE: Digital diagnostic mammography of the left breast was performedin addition to 3-D Tomosynthesis technique. This study was read with theassistance of a computer-aided detection system. Left breast ultrasoundwas performed. TISSUE DENSITY: There are scattered areas of fibroglandular density. FINDINGS: Mammogram findings: Additional views confirm a small circumscribed mass ofthe left breast lower inner quadrant, middle depth. This is slightlyreniform shape and well-defined. This is further evaluated withultrasound. Ultrasound findings: Targeted left breast ultrasound reveals a smallcomplex cyst in the 7:00 sector, 5 cm from the nipple measuring 5 mm ingreatest diameter. This probably benign and follow-up is recommended. =====IMPRESSION:===== Probably benign cyst in the left breast 7:00 sector. Follow-up leftdiagnostic mammogram and ultrasound are recommended in 6 months. ASSESSMENT: ACR BI-RADS 3 - PROBABLY BENIGN FINDING(S) - SHORT INTERVALFOLLOW-UP SUGGESTED Recommendation: 1: Short interval follow-up in 6 months. Left Ordered By: LISA DIETZ Interpreted By: Rodger Nathan MD, 07/07/2024 9:18 AM us Lisa Dietz MD ULTRASOUND Final Re sult * MG DIAG W BLAZE LT DIGI (07/07/2024 7:19 AM CDT) Anatomical Region Laterality Modality Breast Left Mammography 07/07/2024 9:18 AM CDT Impressions 07/07/2024 9:46 AM CDT =====IMPRESSION:===== Probably benign cyst in the left breast 7:00 sector. Follow-up left diagnostic mammogram and ultrasound are recommended in 6 months. ASSESSMENT: ACR BI-RADS 3 - PROBABLY BENIGN FINDING(S) - SHORT INTERVAL FOLLOW- UP SUGGESTED Recommendation: 1: Short interval follow-up in 6 months. Left Ordered By: LISA DIETZ Interpreted By: Rodger Nathan MD, 07/07/2024 9:18 AM Narrative 07/07/2024 9:46 AM CDT [facility] [address] [place] [address] EXAMINATION: Digital left diagnostic mammogram with 3-D tomography; left breast ultrasound [id number] EXAM DATE/TIME: 07/07/2024 7:06 AM REASON FOR EXAM: Callback from screening for left focal asymmetry COMPARISON: 06/02/2024 TECHNIQUE: Digital diagnostic mammography of the left breast was performed in addition to 3-D Tomosynthesis technique. This study was read with the assistance of a computer-aided detection system. Left breast ultrasound was performed. TISSUE DENSITY: There are scattered areas of fibroglandular density. FINDINGS: Mammogram findings: Additional views confirm a small circumscribed mass of the left breast lower inner quadrant, middle depth. This is slightly reniform shape and well-defined. This is further evaluated with ultrasound. Ultrasound findings: Targeted left breast ultrasound reveals a small complex cyst in the 7:00 sector, 5 cm from the nipple measuring 5 mm in greatest diameter. This probably benign and follow-up is recommended. us Lisa Dietz MD MAMMO Final Re sult * Cytopath Cerv/Vag Thin Layer (05/20/2024 9:00 AM CDT) THIN PREP PAP [address] [address] Department of Pathology Pathology Report CERVICAL/VAGINAL PAP SMEAR REPORT Name: KARLOSALEXIARADHA Age: 5 1970 (Age: 53) Location: [facility] Sex: F Collected Date: 05/20/2024 [facility] #: [id number] Date Received: 05/23/2024 Date Reported: 05/24/2024 Provider: LISA DIETZ MD INTERPRETATION CERVICAL/ENDOCERVI RITU: SATISFACTORY FOR EVALUATION. ENDOCERVICAL/TRANS FORMATION ZONE COMPONENT ABSENT. NEGATIVE FOR INTRAEPITHELIAL LESION OR MALIGNANCY. NEGATIVE FOR HIGH RISK HPV. The FDA approved Aptima HPV assay is an in vitro nucleic acid amplification test for the qualitative detection of E6/E7 viral messenger RNA (mRNA) from 14 high-risk types of human papillomavirus (HPV) in cervical specimens. The high-risk HPV types detected by the assay include: 16,18,31,33,35,39, 45,51,52,56,58,59, 66, and 68. Electronically Signed Out By TANNA Singh (ASCP) CLINICAL HISTORY (Z12.4) CERVICAL CANCER SCREENING PAP TEST SCREENING NO HISTORY ThinPrep Pap Test with screening HR HPV testing requested, with reflex HPV 16/18 genotyping on negative cytology, positive HR HPV Date of Last Menstrual Period: TEN YEARS AGO Menstrual Status: Post-Menopausal SPECIMEN SUBMITTED CERVICAL/ENDOCERVI RITU Specimen Received:1 Thin Prep Vial, Image Assisted Pap (SMD) Please note: The Pap smear is not a diagnostic test. It is a screening test. Negative results on combined screening (Pap test and HPV-DNA) have a high negative predictive value (99.1-100 percent) for cervical cancer. The pap test is not effective in detecting cervical adenocarcinoma. [facility] 05/20/2024 9:00 AM CDT 05/23/2024 9:00 AM CDT Comment:CERVICAL/ENDOCERVICA L us Lisa Dietz MD PATHOLOGY/CYTOLOGY ORDER SHANA Final Result [facility] [address] [place] [address], * HUMAN PAPILLOMAVIRUS, HIGH-RISK TYPES (05/20/2024 8:00 AM CDT) SPEC DESCRIPTION ENDOCERVIX 05/23/2024 9:34 AM CDT [facility] HPV DNA HIGH RISK NEGATIVE NEGATIVE 05/23/2024 2:55 PM CDT [facility] Comment:SEE CYTOLOGY REPORT 05/20/2024 8:00 AM CDT Lisa Dietz MD PATHOLOGY/CYTOLOGY ORDER SHANA Final Result [facility] [address] [place] [address], * COLOGUARD (EXACT SCIENCE) (05/08/2024 9:17 AM CDT) COLOGUARD RESULT Negative Negative [employer] (CLIA #:[id number]) Comment: NEGATIVE TEST RESULT. A negative Cologuard result indicates a low likelihood that a colorectal cancer (CRC) or advanced adenoma (adenomatous polyps with more advanced pre-malignant features) is present. The chance that a person with a negative Cologuard test has a colorectal cancer is less than 1 in 1500 (negative predictive value >99.9%) or has an advanced adenoma is less than 5.3% (negative predictive value 94.7%). These data are based on a prospective cross-sectional study of 10,000 individuals at average risk for colorectal cancer who were screened with both Cologuard and colonoscopy. (Олег Nolan al, N Engl J Med 2014;370(14):6925-9891) The normal value (reference range) for this assay is negative. COLOGUARD RE-SCREENING RECOMMENDATION: Periodic colorectal cancer screening is an important part of preventive healthcare for asymptomatic individuals at average risk for colorectal cancer. Following a negative Cologuard result, the [place] Cancer Society and U.S. Multi-Society Task Force screening guidelines recommend a Cologuard re-screening interval of 3 years. References: [place] [employer] Society Guideline for Colorectal Cancer Screening: https://www.cancer.org/cancer/tbfim-hibhgn-gskquc/kzcnsycby-ccrzffgpw-gzsmojr/ac s-rec ommendations.html.; Wayne DK, Yun CR, Heron MartinezK, Colorectal Cancer Screening: Recommendations for Physicians and Patients from the U.S. Multi-Society Task Force on Colorectal Cancer Screening , Am J Gastroenterology 2017; 112:0066-0801. TEST DESCRIPTION: Composite algorithmic analysis of stool DNA-biomarkers with hemoglobin immunoassay. Quantitative values of individual biomarkers are not reportable and are not associated with individual biomarker result reference ranges. Cologuard is intended for colorectal cancer screening of adults of either sex, 45 years or older, who are at average-risk for colorectal cancer (CRC). Cologuard has been approved for use by the U.S. FDA. The performance of Cologuard was established in a cross sectional study of average-risk adults aged 50-84. Cologuard performance in patients ages 45 to 49 years was estimated by sub-group analysis of near-age groups. Colonoscopies performed for a positive result may find as the most clinically significant lesion: colorectal cancer [4.0%], advanced adenoma (including sessile serrated polyps greater than or equal to 1cm diameter) [20%] or non- advanced adenoma [31%]; or no colorectal neoplasia [45%]. These estimates are derived from a prospective cross-sectional screening study of 10,000 individuals at average risk for colorectal cancer who were screened with both Cologuard and colonoscopy. (Олег Nolan al, N Engl J Med 2014;370(14):6773-8646.) Cologuard may produce a false negative or false positive result (no colorectal cancer or precancerous polyp present at colonoscopy follow up). A negative Cologuard test result does not guarantee the absence of CRC or advanced adenoma (pre-cancer). The current Cologuard screening interval is every 3 years. ([place] Cancer Society and U.S. Multi-Society Task Force). Cologuard performance data in a 10,000 patient pivotal study using colonoscopy as the reference method can be accessed at the following location: www.[employer]/results. Additional description of the Cologuard test process, warnings and precautions can be found at www.[employer]com. STOOL STOOL SPECIMEN / Unknown 05/08/2024 9:17 AM CDT 05/10/2024 9:35 AM CDT us Lisa Dietz MD BODY FLUIDS AND STOOLS O RDERAMICHELLE Final Result [facility] [address] [place] [address], [employer] (CLIA #:[id number]) [address] [place] [address] from Last 3 Months or Most Recently Relevant to Health Maintenance Insurance [facility] Care Teams Wood Heel Flap Trimmer Relationship Specialty Start Date End Date Lisa Dietz MD [address] [place] [address] PCP - General FAMILY PRACTICE 05/03/24
--- OUTSIDE RECORDS SUMMARY | 2024-09-05 14:14 | XMS_ITS | Referral Summary ---
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 Not on file Last Filed Vital Signs Vital Sign Reading Time Taken Comments Blood Pressure - - Pulse - - Temperature - - Respiratory Rate - - Oxygen Saturation - - Inhaled Oxygen Concentration - - Weight 86.2 kg (190 lb) 01/12/2023 1:16 PM PRINTED CIRCUIT BOARD ASSEMBLY REPAIRER Height 157.5 cm (5' 2) 01/12/2023 1:16 PM PRINTED CIRCUIT BOARD ASSEMBLY REPAIRER Body Mass Index 34.75 01/12/2023 1:16 PM PRINTED CIRCUIT BOARD ASSEMBLY REPAIRER Plan of Treatment Not on file Insurance [employer] Care Teams Quality Technician Relationship Specialty Start Date End Date No, Physician PCP - General 05/05/24 Carlos Yee MD Emergency Medicine 05/05/24
[2024-09-05 14:31] VITALS: BP 139/75; PULSE 108; RESP 18; TEMP 36.6; O2SAT 99
--- OUTSIDE RECORDS SUMMARY | 2024-09-05 14:52 | XMS_ITS | Encounter Summary ---
Author Organization [facility] Address Critical access hospital[address] [place] [address] Care Team Providers Care Shoe Puller Name Role Phone Lisa Ball MD Primary Care Provider + Encounter Details Date Type Department Care Team (Late Contact Info) Description 05/30/2024 Neovacst Message Enc [facility] [address] [facility] [address] [place] [phone] Lisa Ball MD [address] [place] [address] [phone] Stomach pains Social History Tobacco Use Types [...] Industry Job Start Date Job End Date [employer] [facility] Not on file Not o n file Not on file documented as of this encounter Plan of Treatment Upcoming Encounters Date Type Department Care Team (Late Contact Info) Description 05/08/2025 2:40 PM CDT Office Visit [facility] [address] [place] [address] Lisa Ball MD [address] [place] [address] documented as of this encounter Visit Diagnoses Not on filedocumented in this encounter Care Teams Shoe Puller Relationship Specialty Start Date End Date Lisa Ball MD [address] [place] [address] PCP - General FAMILY PRACTICE 05/03/24 documented as of this encounter
--- OUTSIDE RECORDS SUMMARY | 2024-09-05 14:52 | XMS_ITS | Clinical Summary ---
Author Organization [facility] Address [address] [place] [address] Care Team Providers Care Molding Cutter Name Role Phone Lisa Dietz MD Primary [...] Description 07/07/2024 9:50 AM CDT Office Visit [facility] Family Medicine - [place] [address] [facility] [address] [place] [address] Lisa Dietz MD Foot Pain (Right foot pain. No injury. Feels like the bottom of her foot is tight and hurts to walk. Pain radiates up foot to leg. Onset- 2 wks. ) 07/07/2024 6:36 AM CDT - 07/07/2024 11:59 PM CDT Hospital Encounter [facility] [address] Lisa Dietz MD Discharge Disposition: Home or Self Care (Routine Discharge) 07/07/2024 Scan [facility] HE[facility] INFO SRVCS Scanned, Doc Med Group 07/07/2024 Results Follow-Up [facility] [address] Lisa Dietz MD MG DIAG W BLAZE [...] Industry Job Start Date Job End Date [facility] Not on file Not [...] Description 05/08/2025 2:40 PM CDT Office Visit [facility] Family Medicine - [place] [address] [place] [address] [phone] Lisa Dietz MD [address] [place], [place] [phone] Health Maintenance Due Date Last Done Comments [...] Td or Tdap) 05/03/2034 05/03/2024 PHQ-2 (Physician [place]) Completed 05/20/2024 Meningococcal B Vaccine Aged Out [...] Date/Time Associated Diagnosis Comments US BREAST LT PhoneplusAD LTD Routine 07/07/2024 8:04 AM CDT Abnormal [...] 9:18 AM Narrative 07/07/2024 9:46 AM CDT [facility] [address] [place] [address] EXAMINATION: Digital left diagnostic mammogram with 3-D tomography; left breast ultrasound [id number] EXAM DATE/TIME: 07/07/2024 7:06 AM REASON FOR [...] Procedure Note Rodger Nathan MD - 07/07/2024 [facility] [address] [place] [address] EXAMINATION: Digital left diagnostic mammogram with 3-D tomography; leftbreast ultrasound [id number] EXAM DATE/TIME: 07/07/2024 7:06 AM REASON FOR [...] 9:18 AM Narrative 07/07/2024 9:46 AM CDT [facility] [address] [place] [address] EXAMINATION: Digital left diagnostic mammogram with 3-D tomography; left breast ultrasound [id number] EXAM DATE/TIME: 07/07/2024 7:06 AM REASON FOR [...] (05/20/2024 9:00 AM CDT) [facility]AP [address] [phone] Department of Pathology Pathology Report CERVICAL/VAGINAL PAP SMEAR REPORT Name: KARLOSALEXIARADHA Age: 5 1970 (Age: 53) Location: [facility] Sex: F Collected Date: 05/20/2024 [facility] #: [id number] Date Received: 05/23/2024 Date Reported: 05/24/2024 Provider: [...] is not effective in detecting cervical adenocarcinoma. [facility] 05/20/2024 9:00 AM CDT 05/23/2024 9:00 AM CDT Comment:CERVICAL/ENDOCERVICA L us Lisa Dietz MD PATHOLOGY/CYTOLOGY ORDER SHANA Final Result [facility] [address] [place] [address], * HUMAN PAPILLOMAVIRUS, HIGH-RISK TYPES (05/20/2024 8:00 AM CDT) SPEC DESCRIPTION ENDOCERVIX 05/23/2024 9:34 AM CDT [facility] HPV DNA HIGH RISK NEGATIVE NEGATIVE 05/23/2024 2:55 PM CDT [facility] Comment:SEE CYTOLOGY REPORT 05/20/2024 8:00 AM CDT Lisa Dietz MD PATHOLOGY/CYTOLOGY ORDER SHANA Final Result [facility] [address] [place] [address], * COLOGUARD (EXACT SCIENCE) (05/08/2024 9:17 AM CDT) COLOGUARD RESULT Negative Negative [employer] (CLIA #:[id number]) Comment: NEGATIVE TEST RESULT. A negative Cologuard [...] (Олег Nolan al, N Engl J Med 2014;370(14):6483-2289) The normal value (reference range) for this assay is negative. COLOGUARD RE-SCREENING RECOMMENDATION: Periodic colorectal cancer screening is an important part of preventive healthcare for asymptomatic individuals at average risk for colorectal cancer. Following a negative Cologuard result, the [place] [employer] Society and U.S. Multi-Society Task Force screening guidelines recommend a Cologuard re-screening interval of 3 years. References: [place] [employer] Guideline for Colorectal Cancer Screening: https://www.cancer.org/cancer/vdfzn-rcouez-apuyvu/odoltxhlf-lgymwpxju-taocndf/ac s-rec ommendations.html.; Wayne DK, Yun CR, Heron MartinezK, Colorectal Cancer Screening: Recommendations for Physicians and Patients from the U.S. Multi-Society Task Force on Colorectal Cancer Screening , Am J Gastroenterology 2017; 112:6087-6053. TEST DESCRIPTION: Composite algorithmic analysis of stool [...] (Олег Nolan al, N Engl J Med 2014;370(14):9911-2314.) Cologuard may produce a false negative or false positive result (no colorectal cancer or precancerous polyp present at colonoscopy follow up). A negative Cologuard test result does not guarantee the absence of CRC or advanced adenoma (pre-cancer). The current Cologuard screening interval is every 3 years. ([place] [employer] Society and U.S. Multi-Society Task Force). Cologuard performance data in a 10,000 patient pivotal study using colonoscopy as the reference method can be accessed at the following location: www.[employer].VMLogix/results. Additional description of the Cologuard test process, warnings and precautions can be found at www.[employer].com. STOOL STOOL SPECIMEN / Unknown 05/08/2024 9:17 AM CDT 05/10/2024 9:35 AM CDT us Lisa Dietz MD BODY FLUIDS AND STOOLS O RDERAMICHELLE Final Result [employer] [address] [place] [address], [employer] (CLIA #:[id number]) [address] [place] [id number] from Last 3 Months or Most Recently Relevant to Health Maintenance Insurance [facility] Care Teams Molding Cutter Relationship Specialty Start Date End Date Lisa Dietz MD [address] [place] [phone] PCP - General FAMILY PRACTICE 05/03/24
--- OUTSIDE RECORDS SUMMARY | 2024-09-05 14:52 | XMS_ITS | Encounter Summary ---
Author Organization [facility] Address [facility] [place] [address] Care Team Providers Care Legal Clerk Name Role Phone Lisa Ball MD Primary Care Provider + Reason for Referral * Imaging (Routine) - New Request Specialty Diagnoses / Procedures Referred By Contkalie t Referred To Contact RADIOLOGY Diagnoses Abnormal mammogram Procedures BREAST LT [email or web address] Lisa Ball MD [address] [place] [address] Phone: tel: fax: Referral ID Status Reason Start Date Expiration Date V isits Requested Visits Authorized [id number] New Request 07/07/2024 07/07/2025 1 1 Encounter Details Date Type Department Care Team (Late st Contact Info) Description 07/07/2024 Results Follow-Up [facility] Mammography [address] [place] [address] Lisa Ball MD [address] [place] [phone] MG NESSAG W BLAZE LT DIGI, US BREAST LT MiNOWirelessAD uTaP Social History Tobacco Use Types Packs/Day Years [...] Industry Job Start Date Job End Date [employer] [facility] Not on file Not o n file Not on file documented as of this encounter Plan of Treatment Upcoming Encounters Date Type Department Care Team (Late st Contact Info) Description 05/08/2025 2:40 PM CDT Office Visit [facility] Family Medicine [facility] [address] [place] [phone] Lisa Ball MD [address] [place] [phone] Scheduled Orders Name Type Priority Associated Diagnoses Orde r Schedule US BREAST LT BIRAD LTD Ultrasound Routine Abnormal mammogram Expected: 01/07/2025, Expires: 07/07/2025 MG DIAGNOSTIC LT DIGI MAMMO Routine Abnormal mammogram Expected: 01/07/2025, Expires: 09/06/2025 documented as of this encounter Visit Diagnoses Diagnosis Abnormal mammogram- Primary Abnormal mammogram, unspecified documented in this encounter Care Teams Legal Clerk Relationship Specialty Start Date End Date Lisa Ball MD [address] [place] [phone] PCP - General FAMILY PRACTICE 05/03/24 documented as of this encounter
--- OUTSIDE RECORDS SUMMARY | 2024-09-05 14:52 | XMS_ITS | Referral Summary ---
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 Not on file Not on file Last Filed Vital Signs Vital Sign Reading Time Taken Comments Blood Pressure - - Pulse - - Temperature - - Respiratory Rate - - Oxygen Saturation - - Inhaled Oxygen Concentration - - Weight 86.2 kg (190 lb) 01/12/2023 1:16 PM PASTA PRESS OPERATOR Height 157.5 cm (5' 2) 01/12/2023 1:16 PM PASTA PRESS OPERATOR Body Mass Index 34.75 01/12/2023 1:16 PM PASTA PRESS OPERATOR Plan of Treatment Not on file Insurance [facility] CHOICE PLUS [facility] HMO/PPO Address: [facility] [address] [place] [address] [facility] CHOICE PLUS [facility] H[facility]/PPO Address: [facility] [id number] [place] [address] Care Teams Sound Effects Supervisor Relationship Specialty Start Date End Date No, Physician PCP - General 05/05/24 Carlos Yee MD Emergency Medicine 05/05/24
--- OUTSIDE RECORDS SUMMARY | 2024-09-05 14:52 | XMS_ITS | Clinical Summary ---
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 Not on file Not on file Obstetrics History Last Filed Vital Signs Vital Sign Reading Time Taken Comments Blood Pressure - - Pulse - - Temperature - - Respiratory Rate - - Oxygen Saturation - - Inhaled Oxygen Concentration - - Weight 86.2 kg (190 lb) 01/12/2023 1:16 PM REED PRESS FEEDER Height 157.5 cm (5' 2) 01/12/2023 1:16 PM REED PRESS FEEDER Body Mass Index 34.75 01/12/2023 1:16 PM REED PRESS FEEDER Plan of Treatment Health Maintenance Due Date [...] 2023, 12/04/2020 Influenza Vaccine (#1) 2024 Insurance [facility] CHOICE PLUS CHOICE PLUS Care Teams Taxation Inspector Relationship Specialty Start Date End Date No, Physician PCP - General 05/05/24 Carlos Yee MD Emergency Medicine 05/05/24
--- NOTE | 2024-09-05 14:55 | ED.EXTPRO ---
HPI - Extremity Problem General Chief complaint: Extremity Problem,Nontraumatic Stated complaint: R leg pain Time Seen by Provider: 09/05/24 14:56 Focused HPI: Patient is a 54-year-old female who presents to the ER with right leg pain that starts in her ankle and shoots up to her groin. She reports the symptoms started approximately 2 months ago but have been worsening each day. Patient denies any injury to the area. She denies any recent fevers, decreased range of motion, or increased redness in her ankle. Patient sources a history of a stroke and hyperlipidemia. GENERAL: Well-appearing, well-nourished, and in no acute distress. HEAD: Normocephalic, atraumatic. CHEST: Clear to auscultation. ?No respiratory distress. HEART: Regular rate and rhythm.? NEURO: ?Alert and oriented x3. Patient screened in triage and initial orders placed.? ?Additional care and disposition to be based upon?diagnostic testing and treatment. Related Data Allergies Allergy/AdvReac Type Severity Reaction Status Date / Time No Known Allergies Allergy Verified 09/05/24 14:34 [facility] Past Medical History Medical History (Updated 09/06/24 @ 17:30 by Adriana Burleson APRN) Transient ischemic attack Current smoker No pertinent past medical history Surgical History Surgical History History of section History of tubal ligation History of cholecystectomy Social History Social History Smoking packs per day: 1 Smoking cigarettes per day: 20.0 Years smoked: 25 Smoking pack-years: 25.00 Smoking status: Former smoker Tobacco type: cigarettes Smoking end date: 04/22/23 Alcohol intake: never Substance use: never Do You Feel Safe in your Home?: Yes Lack of Transportation: No Lack of Food: Never True Current Housing: I Have Housing Concerned About Future Housing: No Difficulty Paying Gas/Electric Bills: No Difficulty Paying for Meds: No Currently Unemployed: No Education: Decline to Answer Difficulty w/ Childcare or Family Care: No Occupation/Education: occupation Additional occupation/education comments: [employer] Spiritual care concerns: No Course Vital Signs Vital signs: Vital Signs Temperature 36.6 C 09/05/24 14:31 Pulse Rate 108 H 09/05/24 14:31 Respiratory Rate 18 09/05/24 14:31 Blood Pressure 139/75 09/05/24 14:31 Pulse Oximetry 99 09/05/24 14:31 Oxygen Delivery Room Air 09/05/24 14:31 Temperature 36.6 C 09/05/24 14:31 Pulse Rate 108 H 09/05/24 14:31 Respiratory Rate 18 09/05/24 14:31 Blood Pressure 139/75 09/05/24 14:31 Pulse Oximetry 99 09/05/24 14:31 Oxygen Delivery Room Air 09/05/24 14:31 Discharge Plan Discharge Clinical Impression: Lower extremity edema Patient Disposition: Elopement After Seen by Prov Patient Language: Lithuanian Prescriptions: No Action acetaminophen 500 mg capsule 500 mg PO Q6H PRN (Reason: fever or pain) Qty: 30 0RF atorvastatin 40 mg Tablet 40 mg PO DAILY Qty: 90 0RF clopidogrel 75 mg Tablet 75 mg PO QAM Qty: 90 0RF aspirin [Children's Aspirin] 81 mg Tablet,Chewable 81 mg PO DAILY@0800 Qty: 90 0RF Follow-up/Referrals: PHYSICIAN NOT ON STAFF,NONSTAFF [Primary Care Provider] -
== END 2024-09-05 18:28 | disposition left against medical advice (07) ==
PROVIDERS: Emergency Provider Registered Nurse
DX: R60.0 Localized edema (principal); Z86.73 Personal history of transient ischemic attack (TIA), and cerebral infarction without residual deficits
CPT/HCPCS: 73610; 93971; 99284